=== PATIENT | male | born 1975 | race Caucasian/White ===

== ENCOUNTER 2022-04-28 12:42 | Inpatient (IN) ==
[2022-04-28] MEDS ORDERED: SODIUM CHLORIDE 0.9% 500 ML IV STA (13:06)
[2022-04-28] MEDS ORDERED: ONDANSETRON INJ 2 MG/ML 2 ML VIAL IV STA ×2 (13:13→17:13)
[2022-04-28] MEDS ORDERED: MoRPHine SULFATE 4 MG/ML 1 ML CARP\\VIAL IV STA ×2 (13:13→17:13)
--- NOTE | 2022-04-28 13:15 | Emergency Department Note ---
Impression & Plan Choledocholithiasis ADMIT ED Provider Note HPI: The patient is a 47-year-old male with history of chronic pancreatitis, diverticulitis, presents the emergency department with chief complaint of worsening epigastric pain over the past several days that he states feels s imilar to pancreatitis he has had in the past. Patient states he has had some nausea but denies any vomiting. On arrival here to the ED the patient is hemodynamically stable, he is in no acute distress on my initial evaluation. ROS: -GI: Epigastric abdominal pain and mid abdominal pain, nausea *10 point review systems was conducted and is otherwise negative unless stated above *Outpatient medications and allergy history reviewed PE: General: Alert, NAD HEENT: Normocephalic, atraumatic Eyes: Extraocular eye movement is intact, no scleral erythema Pulmonary: Clear to auscultation bilaterally, no wheezing Cardio: Regular rate and rhythm GI: Abdomen is soft, there is tenderness to palpation over the upper abdomen diffusely, no guarding or rigidity : No suprapubic tenderness MSK: No evidence of trauma or malformation of the extremities, no edema Skin: No evidence of rash Neuro: Alert, no focal deficits Psychiatric: Cooperative category analyst: - An order was placed for continuous cardiac monitoring - Patient was noted to be in sinus rhythm with a rate of 67 Medical Decision Making: Patient presented to the emergency department with a chief complaint of upper abdominal pain and mid abdominal pain that is been bothering him for the past several days. Patient states he feels similar to acute pancreatitis he has had the past. CT imaging of the abdomen pelvis was obtained after patient was given IV fluids as well as morphine and Zofran, CT imaging shows concern for acute cholecystitis with intra hepatic and extrahepatic biliary ductal dilation concerning for choledocholithiasis. Ultrasound imaging shows similar concern. Patient does have elevated bilirubin of 4.1, LFTs are also elevated. I did discuss the case with on-call gastroenterology for [facility], Dr. Salazar, who recommends at this time admission to the medicine service and GI will evaluate the patient as consult for ERCP. My reassessment the patient is resting comfortably in bed, he is updated on the above plan and he is in agreement. He was given a dose of IV ceftriaxone and made NPO. Case was discussed with the on-call admitting medicine midlevel provider for [facility] and the patient was admitted in stable condition for further care. Diagnosis: 1. Acute cholecystitis secondary to choledocholithiasis 2. Acute abdominal pain 3. Transaminitis 4. 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 History of surgery on lower extremity right tibia shaft reconstructive surgery Family History Mother Diabetes Social History Smoking Status: Never smoker Preferred Language: Croatian marital status: Single current occupational status: employed 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 Feels Safe at Home: Yes Allergies Allergies Allergy/AdvReac Type Severity Reaction Status Date / Time vancomycin AdvReac Unknown Unknown Verified 04/28/22 15:54 Home Meds Home Medications Medication Instructions Recorded Confirmed bupropion HCl 100 mg tablet 100 mg PO TID 02/19/22 04/28/22 cholecalciferol (vitamin D3) 50 50 mcg PO DAILY 02/19/22 04/28/22 mcg (2,000 unit) capsule duloxetine 20 mg capsule,delayed 20 mg PO DAILY 02/19/22 04/28/22 release (Cymbalta) mirtazapine 15 mg tablet 7.5 mg PO HS 02/19/22 04/28/22 omeprazole 20 mg capsule,delayed 20 mg PO BID 02/19/22 04/28/22 release [id number] 2 - 3 cap PO UD 04/17/22 04/28/22 24,000-76,000-120,000 unit capsule,delayed rel (Creon) Results & Data (ED) Vital Signs Vital Signs - 24 hr 04/28/22 12:49 04/28/22 15:45 Temperature 37 C Temperature Source Temporal Artery Scan Pulse Rate 83 Pulse Rate [Apical] 65 Respiratory Rate 18 16 Respiratory Effort / Characteristics Non-Labored Spontaneous Non-Labored Spontaneous Respiratory Depth Normal Normal Respiratory Pattern Regular Blood Pressure 123/84 Blood Pressure [Right Arm] 137/91 Blood Pressure Mean 97 Blood Pressure Mean [Right Arm] 106 Blood Pressure Position Sitting Blood Pressure Position [Right Arm] Lying Pulse Oximetry 97 98 Oxygen Delivery Method Room Air Room Air Sepsis Recent Fever Within 48 Hours No Sepsis New/Unexplained Change in Mental Status No Sepsis Action Taken by Nursing No Action Required Laboratory Data Result diagrams: 04/28/22 13:06 04/28/22 13:06 Lab Results 04/28/22 04/28/22 04/28/22 Range/Units 13:06 13:06 13:06 WBC 5.29 (4.8-10.8) K/ul RBC 4.82 (4.63-6.08) M/uL Hgb 14.3 (14.0-18.0) g/dl Hct 44.1 (40.1-51.0) % MCV 91.5 (80.0-100.0) fL MCH 29.7 (25.0-34.0) pg MCHC 32.4 (32.0-36.0) g/dL RDW Std Deviation 39.3 (36.4-46.3) fL RDW Coeff of Mayra 11.8 (11.5-14.5) % Plt Count 273 (130-400) K/uL MPV 9.8 (9.4-12.4) fL Immature Gran % (Auto) 0.2 % Neut % (Auto) 62.1 % Lymph % (Auto) 24.8 % Ross % (Auto) 11.7 % Eos % (Auto) 0.6 % Baso % (Auto) 0.6 % Neut # (Auto) 3.29 (1.4-6.5) K/uL Lymph # (Auto) 1.31 (1.2-3.4) K/uL Ross # (Auto) 0.62 (0.24-0.82) K/uL Eos # (Auto) 0.03 (0-0.50) K/uL Baso # (Auto) 0.03 (0-0.2) K/uL Immature Gran # (Auto) 0.01 (0.00-0.02) K/uL Sodium 140 (136-145) mmol/L Potassium 3.9 (3.5-5.1) mmol/L Chloride 104 (98-107) mmol/L Carbon Dioxide 30 (21-32) mmol/L Anion Gap 6 (3-11) BUN 11 (6-23) mg/dl Creatinine 0.91 (0.6-1.4) mg/dl Est Cr Clr Drug Dosing 104.1 ml/min Est GFR ( Amer) 117.5 ml/min Est GFR (Non-Af Amer) 101.4 ml/min BUN/Creatinine Ratio 12.1 (10-20) Glucose 107 H (70-99(Fasting)) mg/dl Calcium 9.5 (8.5-10.1) mg/dl Total Bilirubin 4.1 H (0.2-1.0) mg/dl AST 425 H (13-39) U/L ALT 604 H (7-52) U/L Alkaline Phosphatase 197 H (34-104) U/L Total Protein 7.7 (6.0-8.3) gm/dl Albumin 4.6 (3.4-5.0) gm/dl Globulin 3.1 (2.5-4.0) gm/dl Albumin/Globulin Ratio 1.5 (0.9-2) Lipase 53 (11-82) U/L Urine Color Dark Yellow Urine Appearance Clear (Clear) Urine pH 7.5 (4.5-7.5) Ur Specific Bowdle 1.013 (1.000-1.030) Urine Protein Negative (Negative) Urine Glucose (UA) Negative (Negative) Urine Ketones Negative (Negative) Urine Blood Negative (Negative) Urine Nitrite Negative (Negative) Urine Bilirubin 1+ H (Negative) Urine Urobilinogen Negative (Negative) Ur Leukocyte Esterase Negative (Negative) Administered Medications Discontinued Medications Sodium Chloride (Nss) 500 mls @ 999 mls/hr IV .Q31M STA Stop: 04/28/22 13:36 Last Infusion: 04/28/22 14:07 Dose: 0 mls/hr Documented By: Admin: 04/28/22 13:21 Dose: 999 mls/hr Documented By: TANIA Ioversol (Optiray 300 500ml) 94 ml IV ONCE ONE Stop: 04/28/22 14:01 Last Admin: 04/28/22 14:00 Dose: 94 ml Documented By: FRANCOISE Morphine Sulfate (Morphine Sulfate 4 Mg/Ml 1 Ml Carp\Vial) 4 mg IV NOW STA Stop: 04/28/22 13:14 Last Admin: 08/30/22 13:20 Dose: 4 mg Documented By: TANIA Ondansetron HCl (Ondansetron Inj 2 Mg/Ml 2 Ml Vial) 4 mg IV NOW STA Stop: 04/28/22 13:14 Last Admin: 04/28/22 13:20 Dose: 4 mg Documented By: TANIA Imaging Data Radiologist's Impression: Abdomen/Pelvis CT 04/28/22 13:11 CT SCAN OF THE ABDOMEN AND PELVIS WITH IV CONTRAST CLINICAL HISTORY: Mid abdominal pain. COMPARISON STUDY: Abdominal CT dated 03/05/2022. TECHNIQUE: Following the IV administration of 94 cc of Optiray 300, CT scan of the abdomen and pelvis is performed from the lung bases to the proximal femora. Images are reviewed in the axial, sagittal, and coronal planes. IV contrast was administered without complication. A dose lowering technique was utilized adhering to the principles of ALARA. CT DOSE: 347.72 mGy.cm FINDINGS: Lung bases: The heart is normal in size and without pericardial effusion. The lung bases are clear. Liver: The contrast-enhanced liver is normal in size, contour, and attenuation. There is mild intrahepatic biliary ductal dilatation. The hepatic veins and portal veins are patent. Gallbladder: The gallbladder is distended, and the wall appears thickened. There is minimal surrounding infiltration. The common bile duct is dilated measuring up to 11 mm in diameter. Spleen: Normal in size and attenuation. Pancreas: The pancreas is normal as visualized. The duct is normal in caliber. Adrenal glands: Unremarkable. Kidneys: The contrast enhanced kidneys are normal in size and without hydronephrosis. The kidneys enhance symmetrically. Abdominal vasculature: The abdominal aorta is normal in course and caliber. Bowel: There is mild to moderate colonic fecal retention. No bowel obstruction is seen. The appendix is normal as visualized. Peritoneum: There is a small volume of free fluid in the pelvis. No intraperitoneal free air is identified. There is a fat-containing umbilical hernia. Lymphadenopathy: None. Pelvic viscera: The bladder is distended but otherwise normal in appearance. The prostate and seminal vesicles are normal as visualized. Skeletal structures: No lytic or blastic lesions are seen. IMPRESSION: 1. There is CT evidence of acute cholecystitis. Correlate with clinical and laboratory findings. 2. Intra and extrahepatic biliary ductal dilatation suggest choledocholithiasis as causative. 3. The pancreas is normal as visualized. 4. Free fluid in the pelvis is likely reactive. 5. Additional findings as above. ACT 112: Negative or not required by law. Electronically signed by: Francesco Pérez M.D. 04/28/2022 2:22 PM Gallbladder Ultrasound 04/28/22 14:09 ULTRASOUND RIGHT UPPER QUADRANT ABDOMEN CLINICAL HISTORY: Right upper quadrant abdominal pain. Elevated hepatic transaminases. COMPARISON STUDY: Abdominal CT dated 04/28/2022. TECHNIQUE: Real-time, grayscale, and color flow sonography of the right upper quadrant of the abdomen was performed. Images are reviewed in the transverse and longitudinal planes. FINDINGS: Liver: The liver is normal in size and echotexture. There is mild intrahepatic biliary ductal dilatation. The main portal vein is patent. Gallbladder: The gallbladder is distended, containing stones and sludge. The gallbladder wall is top normal in thickness measuring up to 3 mm. There is trace pericholecystic fluid. A sonographic Sellers's sign could not be assessed as the patient received analgesia. The common bile duct is dilated, measuring up to 1.1 cm in diameter. Pancreas: Visualized portions of the pancreatic head and body are normal in appearance. Right kidney: Survey images of the right kidney demonstrate normal size and echotexture. There is no hydronephrosis. Ascites: None. IMPRESSION: 1. Cholelithiasis and biliary sludge with sonographic evidence of acute cholecystitis. Surgical assessment is advised. 2. There is intra and extrahepatic biliary ductal dilatation. ACT 112: Negative or not required by law. Electronically signed by: Francesco Pérez M.D. 04/28/2022 3:28 PM Discharge Plan Visit Data Chief Complaint: Abdominal Pain Stated Complaint: ABDOMINAL PAIN ED Provider: Kendell Fontenot Discharge Problem: Choledocholithiasis Patient Disposition: Admitted As Inpatient Forms Stand Alone Forms: [facility] Prescriptions Prescriptions: No Action mirtazapine 15 mg tablet 7.5 mg PO HS Rx Instructions: 1/2 tablet dose bupropion HCl 100 mg tablet 100 mg PO TID omeprazole 20 mg capsule,delayed release(DR/EC) 20 mg PO BID cholecalciferol (vitamin D3) 50 mcg (2,000 unit) capsule 50 mcg PO DAILY duloxetine [Cymbalta] 20 mg capsule,delayed release(DR/EC) 20 mg PO DAILY Creon 24,000-76,000 -120,000 unit capsule,delayed release(DR/EC) 2 - 3 cap PO UD MDD 8-10 caps daily Rx Instructions: take 2-3 capsules with meals and 1-2 capsules with snack Referrals Referrals: Cory Andersen [Primary Care Provider] -
[2022-04-28 13:17] LABS: Basophils # (auto) 0.03 K/uL (0-0.2); Basophils % (auto) 0.6 %; Eosinophils # (auto) 0.03 K/uL (0-0.50); Eosinophils % (auto) 0.6 %; Hematocrit (blood only) 44.1 % (40.1-51.0); Hemoglobin 14.3 g/dl (14.0-18.0); Immature Granulocytes # (auto) 0.01 K/uL (0.00-0.02); Immature Granulocytes % (auto) 0.2 %; Lymphocytes # (auto) 1.31 K/uL (1.2-3.4); Lymphocytes % (auto) 24.8 %; Mean Corpuscular Hemoglobin 29.7 pg (25.0-34.0); Mean Corpuscular Hgb Conc 32.4 g/dL (32.0-36.0); Mean Corpuscular Volume 91.5 fL (80.0-100.0); Mean Platelet Volume 9.8 fL (9.4-12.4); Monocytes # (auto) 0.62 K/uL (0.24-0.82); Monocytes % (auto) 11.7 %; Neutrophils # (auto) 3.29 K/uL (1.4-6.5); Neutrophils % (auto) 62.1 %; Platelet Count 273 K/uL (130-400); RDW Coefficient of Variation 11.8 % (11.5-14.5); RDW Standard Deviation 39.3 fL (36.4-46.3); Red Blood Count 4.82 M/uL (4.63-6.08); White Blood Count 5.29 K/ul (4.8-10.8)
[2022-04-28 13:19] LABS: Appearance Urine Clear (Clear); Blood Urine Negative (Negative); Color Urine Dark Yellow; Glucose Urine UA Negative (Negative); Ketones Urine Negative (Negative); Leukocyte Esterase Urine Negative (Negative); Nitrite Urine Negative (Negative); Protein Urine Negative (Negative); Specific Gravity Urine 1.013 (1.000-1.030); Urobilinogen Urine Negative (Negative); pH Urine 7.5 (4.5-7.5)
[2022-04-28 13:22] LABS: Bilirubin Urine 1+ (Negative)
[2022-04-28 13:41] LABS: BUN Creatinine Ratio 12.1 (10-20); Calcium 9.5 mg/dl (8.5-10.1); Creatinine Clr Calc Pharmacy 104.1 ml/min; Est GFR (African American) 117.5 ml/min; Est GFR (Non-African American) 101.4 ml/min; Potassium 3.9 mmol/L (3.5-5.1)
[2022-04-28 13:42] LABS: Albumin Globulin Ratio 1.5 (0.9-2); Albumin Level 4.6 gm/dl (3.4-5.0); Bilirubin,Total 4.1 mg/dl (0.2-1.0); Globulin 3.1 gm/dl (2.5-4.0); Total Protein 7.7 gm/dl (6.0-8.3)
[2022-04-28] MEDS ORDERED: OPTIRAY 300 500mL IV ONE (14:00)
--- NOTE | 2022-04-28 14:24 | CT Scan Report ---
CT SCAN OF THE ABDOMEN AND PELVIS WITH IV CONTRAST CLINICAL HISTORY: Mid abdominal pain. COMPARISON STUDY: Abdominal CT dated 03/05/2022. TECHNIQUE: Following the IV administration of 94 cc of Optiray 300, CT scan of the abdomen and pelvi s is performed from the lung bases to the proximal femora. Images are reviewed in the axial, sagittal , and coronal planes. IV contrast was administered without complication. A dose lowering technique wa s utilized adhering to the principles of ALARA. CT DOSE: 347.72 mGy.cm FINDINGS: Lung bases: The heart is normal in size and without pericardial effusion. The lung bases are clear. Liver: The contrast-enhanced liver is normal in size, contour, and attenuation. There is mild intrahe patic biliary ductal dilatation. The hepatic veins and portal veins are patent. Gallbladder: The gallbladder is distended, and the wall appears thickened. There is minimal surroundi ng infiltration. The common bile duct is dilated measuring up to 11 mm in diameter. Spleen: Normal in size and attenuation. Pancreas: The pancreas is normal as visualized. The duct is normal in caliber. Adrenal glands: Unremarkable. Kidneys: The contrast enhanced kidneys are normal in size and without hydronephrosis. The kidneys enh ance symmetrically. Abdominal vasculature: The abdominal aorta is normal in course and caliber. Bowel: There is mild to moderate colonic fecal retention. No bowel obstruction is seen. The appendix is normal as visualized. Peritoneum: There is a small volume of free fluid in the pelvis. No intraperitoneal free air is ident ified. There is a fat-containing umbilical hernia. Lymphadenopathy: None. Pelvic viscera: The bladder is distended but otherwise normal in appearance. The prostate and seminal vesicles are normal as visualized. Skeletal structures: No lytic or blastic lesions are seen. IMPRESSION: 1. There is CT evidence of acute cholecystitis. Correlate with clinical and laboratory findings. 2. Intra and extrahepatic biliary ductal dilatation suggest choledocholithiasis as causative. 3. The pancreas is normal as visualized. 4. Free fluid in the pelvis is likely reactive. 5. Additional findings as above. ACT 112: Negative or not required by law. Electronically signed by: Francesco Pérez M.D. 04/28/2022 2:22 PM
--- NOTE | 2022-04-28 15:29 | Ultrasound Report ---
ULTRASOUND RIGHT UPPER QUADRANT ABDOMEN CLINICAL HISTORY: Right upper quadrant abdominal pain. Elevated hepatic transaminases. COMPARISON STUDY: Abdominal CT dated 04/28/2022. TECHNIQUE: Real-time, grayscale, and color flow sonography of the right upper quadrant of the abdomen was performed. Images are reviewed in the transverse and longitudinal planes. FINDINGS: Liver: The liver is normal in size and echotexture. There is mild intrahepatic biliary ductal dilatat ion. The main portal vein is patent. Gallbladder: The gallbladder is distended, containing stones and sludge. The gallbladder wall is top normal in thickness measuring up to 3 mm. There is trace pericholecystic fluid. A sonographic Sellers' s sign could not be assessed as the patient received analgesia. The common bile duct is dilated, daiana uring up to 1.1 cm in diameter. Pancreas: Visualized portions of the pancreatic head and body are normal in appearance. Right kidney: Survey images of the right kidney demonstrate normal size and echotexture. There is no hydronephrosis. Ascites: None. IMPRESSION: 1. Cholelithiasis and biliary sludge with sonographic evidence of acute cholecystitis. Surgical asses sment is advised. 2. There is intra and extrahepatic biliary ductal dilatation. ACT 112: Negative or not required by law. Electronically signed by: Francesco Pérez M.D. 04/28/2022 3:28 PM
[2022-04-28] MEDS ORDERED: cefTRIAXone SODIUM 2,000 MG/70 ML BAG IV STA (15:47)
--- NOTE | 2022-04-28 15:59 | Gastrointestinal Consultation ---
Date of Consultation April 28, 2022 Assessment & Plan (1) Abdominal pain: (2) Elevated LFTs: (3) Dilated bile duct: (4) Cholecystitis with cholelithiasis: And choledocholithiasis w/o evidence of cholangitis. Plan NPO Will arranged MRI/MRCP (hx of chronic pancreatitis, r/o bile duct strictures) Will plan for ERCP tomorrow. Supervising Physician Co-Signing Physician Notes Attg add: I interviewed and examined pt, reviewed chart and labs. Pt with prior dx alcoholic pancreatitis at [facility] (Dr Lamas) 3-4 years prior, maintained on Creon with episodes of abd pain approx once a month lasting 6 hours and managed at home. He now presents with abd pain since yesterday in epigastrium rad to back, assoc with nausea and decr appetite. no cholangitis symptoms. LFTs newly elevated, lipase WNL, WBC WNL. CT shows zaynab dil, stones, mild GB wall thick and perichole fluid. On exam, he is comfortable and non tender. MRCP to look for CBD stricture ERCP tomorrow Surg consult for julee Abx for possible cholecystitis History of Present Illness Reason for Consultation: Choledocholithiasis Requesting Physician: Dr. Hinds (ED) Attending Physician: Dr. Hinds History of Present Illness Mr. Konstantin Sibley is a 47 yr old male pt of Dr. Cory Andersen w a hx of ETOH pancreatitis, abstaining for years who presented to the ED today for upper abdomen pain in the epigastric/RUQ of the abdomen radiating to the mid back. He reports intermittent episodes of upper abdomen pain for 2 months. He was also dx'ed with diverticulitis a few weeks ago, tx with Augmentin. Severe upper abd pain radiating to the back began yesterday morning after eating waffles. He is S/P ERCP about 4 yrs ago when dx'ed with ETOH pancreatitis. Pt doesn't believe that he underwent sphincterotomy. On arrival, LFTs were elevated: T Bili 4.1, AST 425, ALT 604, Alk Phos 604, lipase 53. CT and US with gallstones, a thickened gallbladder wall, dilated bile duct to 11mm. Allergies Allergy/AdvReac Type Severity Reaction Status Date / Time vancomycin AdvReac Unknown Unknown Verified 04/28/22 15:54 Home Medications Medication Instructions Recorded Confirmed Type bupropion HCl 100 mg tablet 100 mg PO TID 02/19/22 04/28/22 History cholecalciferol (vitamin D3) 50 50 mcg PO DAILY 02/19/22 04/28/22 History mcg (2,000 unit) capsule duloxetine 20 mg capsule,delayed 20 mg PO DAILY 02/19/22 04/28/22 History release (Cymbalta) mirtazapine 15 mg tablet 7.5 mg PO HS 02/19/22 04/28/22 History omeprazole 20 mg capsule,delayed 20 mg PO BID 02/19/22 04/28/22 History release [id number]-[id number]-rxwwfkd 2 - 3 cap PO UD 04/17/22 04/28/22 History 24,000-76,000-120,000 unit capsule,delayed rel (Creon) Patient History Medical History (Updated 04/28/22 @ 16:35 by Kendell Fontenot DO) Anxiety state Chronic pancreatitis Elevated PSA GERD (gastroesophageal reflux disease) HTN (hypertension) Vitamin D deficiency Surgical History (Updated 04/28/22 @ 16:18 by Liliam Henderson PA-C) 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 History of surgery on lower extremity right tibia shaft reconstructive surgery Family History Mother Diabetes Social History Smoking Status: Never smoker Preferred Language: Hungarian marital status: Single current occupational status: employed 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 Feels Safe at Home: Yes Review of Systems Review of Systems: ROS: Gen: Denies weakness, fevers, weight loss Eyes: No eye redness, or pain, no recent vision changes Resp: No SOB, no cough Cardio: No palpitations/irregular beats, no chest pain GI: As per HPI, otherwise (-) : Denies pain on urination Skin: + jaundice, +itching or new rashes Physical Exam Constitutional: WD/WN, vitals as above Eyes: PERRL, conjunctivae normal, anicteric sclerae ENMT: external ear and nose normal, oropharynx normal Neck: trachea midline, no thyromegaly Respiratory: normal respiratory effort, lungs clear to auscultation Cardiovascular: RRR, no murmur, no edema Gastrointestinal (Abdomen): Inspection/Auscultation: abdomen normal to inspection and + hypoactive bowel sounds; abdomen not distended Percussion/ Palpation: + abdomen tender (epigastric and RUQ moderate tenderness) and abdomen soft Skin: normal turgor and + jaundice Neurologic: PERRL, EOMI, accommodation nl, no face palsy, no dysarthria Psychiatric: A+Ox3, euthymic affect Lymphatic: no cervical or axillary lymphadenopathy Results & Data ([facility]) Vital Signs (Past 12 Hours) Vital Signs Temp Pulse Pulse Resp BP BP Pulse Ox 04/28/22 15:45 65 16 137/91 98 04/28/22 12:49 37 C 83 18 123/84 97 O2 Del Method 04/28/22 15:45 Room Air 04/28/22 12:49 Room Air Laboratory Results WBC , Hb 14.3, Hct 44.1, Plts 273, Na 140, K 3.9, Cl 104, CO2 30, BUN 11, Cr 0.71, glucose 10 T Bili 4.1, AST 425, ALT 604, Alk Phos 197, Lipase 53 Diagnostic Findings CTAP 04/28/22: 1. There is CT evidence of acute cholecystitis. Correlate with clinical and laboratory findings. 2. Intra and extrahepatic biliary ductal dilatation suggest choledocholithiasis as causative. 3. The pancreas is normal as visualized. 4. Free fluid in the pelvis is likely reactive. US 04/28/22: 1. Cholelithiasis and biliary sludge with sonographic evidence of acute cholecystitis. Surgical assessment is advised. 2. There is intra and extrahepatic biliary ductal dilatation
--- NOTE | 2022-04-28 16:07 | History & Physical Report ---
Date of Service April 28, 2022 Assessment & Plan (1) Choledocholithiasis: Plan: - CT A/P shows intra and extrahepatic duct dilation, also noted on GB U/S, CBD dilated to 1.1 cm. - Also with evidence of cholecystitis, patient afebrile and without leukocytosis. - [facility] consulted, plan for MRCP this evening and probable ERCP tomorrow. - General surgery consulted regarding cholecystitis. - Placed empirically on antibiotic coverage, Rocephin daily and Flagyl every 8 hours. - NPO. - LR @ 125 cc/hour - IV Tylenol for pain/fever IV morphine for moderate to severe pain, IV Zofran for nausea/vomiting. (2) Cholecystitis: Plan: - Surgery consulted as above, on Rocephin and Flagyl. (3) Chronic pancreatitis: Plan: - Continue Creon with meals when no longer n.p.o. - Lipase 53, CT A/P without evidence of pancreatitis. - Reportedly has a history of chronic pancreatitis, with first incident occurring 4-5 years ago, and chronic, intermittent abdominal pain. States he was binge drinking every weekend back then, however and has never been a daily drinker. Last alcoholic drink 4 to 5 years ago with first incident of pancreat itis. - Follows with [facility] for his chronic pancreatitis management. (4) GERD (gastroesophageal reflux disease): Plan: - Continue daily PPI daily when no longer n.p.o., convert omeprazole to hospital formulary Protonix. (5) Anxiety state: Plan: - Continue Wellbutrin 100 mg 3 times daily with mirtazapine 7.5 mg at night when no longer NPO. - No longer takes Cymbalta. (6) Vitamin D deficiency: Plan: - Continue vitamin D3 when no longer NPO. Plan - Admit to med/surg. - SCDs for VTE px. - Full Code. History of Present Illness Chief Complaint: Abdominal and back pain times for several days Primary Care Provider: Cory Ruizerwin Konstantin Hutchins is a 47-year-old male with a past medical history of chronic pancreatitis secondary to alcohol use, hypertension, depression and anxiety, GERD, vitamin D deficiency who presents today with abdominal pain. He has had intermittent, chronic abdominal pain for several months due to his underlying chronic pancreatitis, however yesterday morning it was acutely worse. It is in his epigastric region and radiates to his back and has been persistent. His lack of appetite, stating that any food or drink he tries to keep down makes his pain worse. He has been nauseous with it, however has no vomiting, no diarrhea, no constipation. He has not had fever or chills at home. He has been told in the past that there has been sludge in his gallbladder. Upon presentation in the ED, he is hemodynamically stable, vital signs within normal limits. CBC unremarkable, CMP with T bili 4.1, AST 425, ALT 64, alk phos 197, otherwise without electrolyte abnormalities, lipase 53, calcium 9.5. His UA with 1+ bilirubin, otherwise unremarkable. CT A/P gallbladder distention with wall thickening, concerning for cholecystitis.there is also intra and extrahepatic biliary ductal dilation suggestive of choledocholithiasis, with the CBD measuring up to 11 mm. The pancreas visualized and normal, there are some free fluid in the pelvis that is likely reactive. There is mild to moderate fecal retention, without obstruction. GBU/S also shows cholelithiasis and biliary sludge with again, intra and extrahepatic biliary ductal dilation. GB wall measuring 3 mm in thickness. Allergies Allergy/AdvReac Type Severity Reaction Status Date / Time vancomycin AdvReac Unknown Unknown Verified 04/28/22 15:54 Home Medications Medication Instructions Recorded Confirmed Type bupropion HCl 100 mg tablet 100 mg PO TID 02/19/22 04/28/22 History cholecalciferol (vitamin D3) 50 50 mcg PO DAILY 02/19/22 04/28/22 History mcg (2,000 unit) capsule duloxetine 20 mg capsule,delayed 20 mg PO DAILY 02/19/22 04/28/22 History release (Cymbalta) mirtazapine 15 mg tablet 7.5 mg PO HS 02/19/22 04/28/22 History omeprazole 20 mg capsule,delayed 20 mg PO BID 02/19/22 04/28/22 History release [id number] 2 - 3 cap PO UD 04/17/22 04/28/22 History 24,000-76,000-120,000 unit capsule,delayed rel (Creon) Past Med/Surg History Medical History (Updated 04/28/22 @ 16:35 by Kendell Fontenot DO) Anxiety state Chronic pancreatitis Elevated PSA GERD (gastroesophageal reflux disease) HTN (hypertension) Vitamin D deficiency Surgical History (Updated 04/28/22 @ 16:18 by Liliam Henderson PA-C) 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 History of surgery on lower extremity right tibia shaft reconstructive surgery Family History (Updated 04/29/22 @ 09:03 by Sumanth Law) Mother Diabetes Other Gall bladder disease Social History Smoking Status: Never smoker Hx Alcohol Use: No Hx Substance Use: No Preferred Language: Hungarian Communication Ability: Effective 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 Beliefs That Will Affect Care: None marital status: Single Current Living Situation: Significant Other current occupational status: employed 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 Other Information That Helps Us Care for You: No Feels Safe at Home: Yes Safety Concerns: Feels Safe At This Time Assistive Devices: Glasses Review of Systems Review of Systems: Constitutional: anorexia x 1 days; No fever/chills, weakness, fatigue, myalgias, night sweats Eyes: No diplopia, no worsening or blurred vision ENT: normal hearing, no trouble swallowing Respiratory: No cough, sputum, dyspnea at rest or on exertion Cardiovascular: No chest pain, tightness or palpitations Abdomen: Epigastric abdominal pain with radiation to the back, with associated nausea and lack of appetite; no vomiting, diarrhea or constipation : Denies dysuria, hematuria, increased urgency/frequency, urinary retention Musculoskeletal: No joint pain, calf pain, swelling Neurologic: No weakness, numbness/tingling, or balance problems Psychiatric: No anxiety or depression Skin: No rash or itch Physical Exam Physical Exam: \ General: awake, alert, no apparent distress Head: Normocephalic, atraumatic ENT: PERRL, EOMI, no pharyngeal exudate, mucous membranes moist Chest: Clear to auscultation, on room air, no adventitious breath sounds Cardiac: Regular rate and rhythm, no murmur, no JVD, normal peripheral pulses, good capillary refill Abdominal: TTP in epigastric region and RUQ; no rebound, guarding or tenderness; NABS x 4 quadrants, abdomen is soft Extremities: Normal inspection, no peripheral edema or erythema, calfs nontender to palpation Psych: Normal mood and affect Neuro: AAO x 3, strength intact bilaterally and rated 5/5, no motor deficits, speech is clear, no peripheral sensory deficits Skin: no rash or erythema Results & Data Results & Data ([facility]) Vital Signs (Past 12 Hours) Vital Signs Temp Pulse Pulse Resp BP BP Pulse Ox 04/28/22 15:45 65 16 137/91 98 04/28/22 12:49 37 C 83 18 123/84 97 O2 Del Method 04/28/22 15:45 Room Air 04/28/22 12:49 Room Air Laboratory Results Abnormal lab results 04/28/22 04/28/22 Range/Units 13:06 13:06 Glucose 107 H (70-99(Fasting)) mg/dl Total Bilirubin 4.1 H (0.2-1.0) mg/dl AST 425 H (13-39) U/L ALT 604 H (7-52) U/L Alkaline Phosphatase 197 H (34-104) U/L Urine Bilirubin 1+ H (Negative) Diagnostic Findings Abdomen/Pelvis CT 04/28/22 13:11 CT SCAN OF THE ABDOMEN AND PELVIS WITH IV CONTRAST CLINICAL HISTORY: Mid abdominal pain. COMPARISON STUDY: Abdominal CT dated 03/05/2022. TECHNIQUE: Following the IV administration of 94 cc of Optiray 300, CT scan of the abdomen and pelvis is performed from the lung bases to the proximal femora. Images are reviewed in the axial, sagittal, and coronal planes. IV contrast was administered without complication. A dose lowering technique was utilized adhering to the principles of ALARA. CT DOSE: 347.72 mGy.cm FINDINGS: Lung bases: The heart is normal in size and without pericardial effusion. The l jennifer bases are clear. Liver: The contrast-enhanced liver is normal in size, contour, and attenuation. There is mild intrahepatic biliary ductal dilatation. The hepatic veins and portal veins are patent. Gallbladder: The gallbladder is distended, and the wall appears thickened. There is minimal surrounding infiltration. The common bile duct is dilated measuring up to 11 mm in diameter. Spleen: Normal in size and attenuation. Pancreas: The pancreas is normal as visualized. The duct is normal in caliber. Adrenal glands: Unremarkable. Kidneys: The contrast enhanced kidneys are normal in size and without hydronephrosis. The kidneys enhance symmetrically. Abdominal vasculature: The abdominal aorta is normal in course and caliber. Bowel: There is mild to moderate colonic fecal retention. No bowel obstruction is seen. The appendix is normal as visualized. Peritoneum: There is a small volume of free fluid in the pelvis. No intraperitoneal free air is identified. There is a fat-containing umbilical hernia. Lymphadenopathy: None. Pelvic viscera: The bladder is distended but otherwise normal in appearance. The prostate and seminal vesicles are normal as visualized. Skeletal structures: No lytic or blastic lesions are seen. IMPRESSION: 1. There is CT evidence of acute cholecystitis. Correlate with clinical and laboratory findings. 2. Intra and extrahepatic biliary ductal dilatation suggest choledocholithiasis as causative. 3. The pancreas is normal as visualized. 4. Free fluid in the pelvis is likely reactive. 5. Additional findings as above. ACT 112: Negative or not required by law. Electronically signed by: Francesco Pérez M.D. 04/28/2022 2:22 PM Gallbladder Ultrasound 04/28/22 14:09 ULTRASOUND RIGHT UPPER QUADRANT ABDOMEN CLINICAL HISTORY: Right upper quadrant abdominal pain. Elevated hepatic transaminases. COMPARISON STUDY: Abdominal CT dated 04/28/2022. TECHNIQUE: Real-time, grayscale, and color flow sonography of the right upper quadrant of the abdomen was performed. Images are reviewed in the transverse and longitudinal planes. FINDINGS: Liver: The liver is normal in size and echotexture. There is mild intrahepatic biliary ductal dilatation. The main portal vein is patent. Gallbladder: The gallbladder is distended, containing stones and sludge. The gallbladder wall is top normal in thickness measuring up to 3 mm. There is trace pericholecystic fluid. A sonographic Sellers's sign could not be assessed as the patient received analgesia. The common bile duct is dilated, measuring up to 1.1 cm in diameter. Pancreas: Visualized portions of the pancreatic head and body are normal in appearance. Right kidney: Survey images of the right kidney demonstrate normal size and echotexture. There is no hydronephrosis. Ascites: None. IMPRESSION: 1. Cholelithiasis and biliary sludge with sonographic evidence of acute cholecystitis. Surgical assessment is advised. 2. There is intra and extrahepatic biliary ductal dilatation. ACT 112: Negative or not required by law. Electronically signed by: Francesco Pérez M.D. 04/28/2022 3:28 PM Code Status & VTE Plan Code Status Full Code. Supervising Physician Co-Signing Physician Notes Attending Attestation & Admit Note: Pt seen/examined, chart reviewed, care plan d/w DHARA Henderson. I agree w/ the bhakta components of her documentation. 47yo male - h/o alcohol abuse but none in 5+ years and chronic pancreatitis followed by [facility] - presents with acute/chronic abd pain. Acute pain 24+ hours. RUQ/epigastric region. Retrospectively the current pain is similar to past episodes of abd pain (previously attributed to chronic pancreatitis by GI). Presents today with radiographic evidence of acute cholecystitis & choledocholithiasis. LFTs increased in an obstructive pattern. No fever. PMH/PSH/allergies/meds/sochx/famhx - reviewed VSS, afebrile gen - NAD eyes - icterus mouth - MMM heart - RRR, s1 s2 lungs - CTA b/l abd - mildly tender RUQ, BS+, ND, no peritoneal signs ext - no edema labs reviewed imaging including MRCP reviewed A/P: 1. probable acute cholecystitis 2. choledocholithiasis 3. abnormal LFTs 2nd to #1, #2 4. r/o cholangitis 5. reported h/o chronic pancreatitis but no calcifications on imaging of the pancreas; lipase wnl today IV rocephin/flagyl IV fluids pain meds GI consult for consideration of ERCP gen surg consult for lap julee down the line serial labs blood cx's due to #2 and #4 Sumanth Law MD PG Care Time/CCT Total # of Minutes Spent Total Time Spent with Patient: Total time spent is greater than 50% in coordination of care (as documented) at patient's floor/unit and/or counseling patient: Coding Level of Care Code 41283 Initial Inpt Care Lvl 3 Diagnoses Choledocholithiasis K80.50 Cholecystitis K81.9 Chronic pancreatitis K86.1 GERD (gastroesophageal reflux disease) K21.9 Anxiety state F41.1 Vitamin D deficiency E55.9
[2022-04-28] MEDS ORDERED: metroNIDAZOLE 500 MG/100 ML BAG IV STA (16:58)
[2022-04-28 18:23] LABS: Influenza A virus by PCR Negative (Neg); Influenza B virus by PCR Negative (Neg); RSV by PCR Negative (Neg); SARS CoV2 RNA(COVID-19) InHosp NEGATIVE (Negative)
--- NOTE | 2022-04-28 20:47 | Magnetic Resonance Report ---
MRCP CLINICAL HISTORY: Acute cholecystitis. COMPARISON STUDY: Abdominal CT and abdominal ultrasound dated 04/28/2022. TECHNIQUE: Abdominal MRCP is performed utilizing various T1 and T2-weighted sequences in the axial an d coronal planes. 3-D reformats are created and assessed. IV contrast was not administered for this e xamination. FINDINGS: The gallbladder is distended and contains stones and sludge. The gallbladder wall is mildly thickened . There is pericholecystic fluid. The appearance is typical for acute cholecystitis. The common bile duct is dilated, measuring up to 10 mm in diameter. There are filling defects within the distal commo n bile duct above the ampulla measuring up to 9 mm consistent with choledocholithiasis. There is mild intrahepatic biliary ductal dilatation. The pancreatic duct is normal in caliber. The unenhanced liver, spleen, pancreas, adrenal glands, and kidneys are grossly normal. The abdominal aorta is normal in caliber. There is no bowel obstruction. No abdominal ascites is seen. No pleural effusion is identified. The bony structures are grossly intact. IMPRESSION: Cholelithiasis and choledocholithiasis with evidence of acute cholecystitis. Dictated: 04/28/2022 8:35 PM Transcribed: 04/28/2022 8:43 PM Rosa [id number] [facility] Electronically signed by: Francesco Pérez M.D. 04/28/2022 8:45 PM
[2022-04-28] MEDS ORDERED: MoRPHine SULFATE 2 MG/ML CARP IV PRN (21:57)
[2022-04-28] MEDS: MoRPHine SULFATE 4 MG/ML 1 ML CARP\\VIAL IV PRN (22:33)
[2022-04-28] MEDS: LACTATED RINGER'S 1,000 ML IV SCH (22:34)
[2022-04-28] MEDS: ONDANSETRON INJ 2 MG/ML 2 ML VIAL IV PRN (22:34)
[2022-04-29] MEDS: metroNIDAZOLE 500 MG/100 ML BAG IV SCH ×3 (01:43→17:12)
[2022-04-29] MEDS: MoRPHine SULFATE 4 MG/ML 1 ML CARP\\VIAL IV PRN ×2 (04:10→11:24)
[2022-04-29] MEDS: ONDANSETRON INJ 2 MG/ML 2 ML VIAL IV PRN ×2 (04:10→11:25)
[2022-04-29 07:08] LABS: Basophils # (auto) 0.03 K/uL (0-0.2); Basophils % (auto) 0.4 %; Eosinophils # (auto) 0.03 K/uL (0-0.50); Eosinophils % (auto) 0.4 %; Hematocrit (blood only) 41.7 % (40.1-51.0); Hemoglobin 13.8 g/dl (14.0-18.0); Immature Granulocytes # (auto) 0.02 K/uL (0.00-0.02); Immature Granulocytes % (auto) 0.3 %; Lymphocytes % (auto) 18.1 %; Mean Corpuscular Hemoglobin 30.2 pg (25.0-34.0); Mean Corpuscular Hgb Conc 33.1 g/dL (32.0-36.0); Mean Corpuscular Volume 91.2 fL (80.0-100.0); Mean Platelet Volume 10.1 fL (9.4-12.4); Monocytes # (auto) 0.81 K/uL (0.24-0.82); Monocytes % (auto) 11.3 %; Neutrophils % (auto) 69.5 %; Platelet Count 248 K/uL (130-400); RDW Coefficient of Variation 11.9 % (11.5-14.5); RDW Standard Deviation 39.6 fL (36.4-46.3); Red Blood Count 4.57 M/uL (4.63-6.08); White Blood Count 7.19 K/ul (4.8-10.8)
[2022-04-29] MEDS: LACTATED RINGER'S 1,000 ML IV SCH ×5 (07:16→20:54)
[2022-04-29 07:19] LABS: INR 1.1 (0.9-1.1); Prothrombin Time 11.9 Seconds (9.0-12.0)
[2022-04-29 08:08] LABS: Albumin Globulin Ratio 1.4 (0.9-2); BUN Creatinine Ratio 9.4 (10-20); Calcium 9.1 mg/dl (8.5-10.1); Creatinine Clr Calc Pharmacy 105.4 ml/min; Est GFR (African American) 110.2 ml/min; Est GFR (Non-African American) 95.1 ml/min; Globulin 2.8 gm/dl (2.5-4.0); Potassium 4.1 mmol/L (3.5-5.1); Total Protein 6.8 gm/dl (6.0-8.3)
[2022-04-29] MEDS: cefTRIAXone SODIUM 1,000 MG in DEXTROSE 5% 50 ML IV SCH (08:49)
--- NOTE | 2022-04-29 09:17 | Surgery Consultation ---
Date of Consultation April 29, 2022 Assessment & Plan (1) Cholecystitis: This is a 47y M with a PMH of alcoholic pancreatitis, GERD, anxiety, HTN, who presented to the [facility] ED on 04/28 with complaints of abdominal pain that started yesterday. Patient reports the pain has been on and off over the last couple of months, but has been becoming more frequent and severe. He presented to the ER due to acute onset and un-resolving pain. He was worked up with a CT a/p that showed evidence of acute cholecystitis with intra and extrahepatic biliary ductal dilatation suggestive of choledocholithiasis. Follow up with a RUQ US showed cholelithiasis and biliary sludge with sonographic evidence of acute cholecystitis again along with intra and extrahepatic biliary ductal dilatation. MRCP confirmed cholelithiasis and choledocholithiasis with evidence of acute cholecystis. Today's labs show WBC 7.1. LFT's elevated with Tb: 7, AST: 243, ALT: 488, AlkP: 190, Lipase up at >4000. On exam patient's abdomen soft, non distended, with tenderness to palpation in the epigastric and RUQ regions. GI is following patient and planning on ERCP today. We will plan on proceeding with lap julee tomorrow morning with Dr. Mcclelland. Continue IV abx, NPO with IVF, and NPO at midnight. (2) Choledocholithiasis: Supervising Physician Co-Signing Physician Notes Patient seen and examined, labs and image reviewed, agree with above. 47-year-old male admitted with cholecystitis and suspected choledocholithiasis. History of alcoholic pancreatitis. Since then he has not been drinking for several years but is continue to have these intermittent episodes of epigastric and right upper quadrant pain. On exam he is afebrile stable vitals. He is jaundiced. His abdomen is soft, tender to palpation in the epigastric and right upper quadrant. WBC normal, bilirubin, LFTs, and lipase elevated. MRCP showed choledocholithiasis and cholecystitis. GI to perform ERCP today, we will plan for potential laparoscopic cholecystectomy with possible cholangiogram tomorrow. Continue antibiotics. Risk the procedure were discussed to include but not limited to bleeding, infection, retained stone, bile leak, damage surrounding structures, conversion open, need for future more extensive surgery, nurse of anesthesia. History of Present Illness Attending Physician: Sumanth Law History of Present Illness This is a 47y M with a PMH of alcoholic pancreatitis, GERD, anxiety, HTN, who presented to the [facility] ED on 04/28 with complaints of abdominal pain. Patient reports the pain has been on and off over the last couple of months, but has been becoming more frequent and severe. He notices the pain in the epigastric and RUQ regions, that radiates into the back. It does worsen after eating. In the ER he was worked up with a CT a/p that showed evidence of acute cholecystitis with intra and extrahepatic biliary ductal dilatation suggestive of choledocholithiasis. Follow up with a RUQ US showed cholelithiasis and biliary sludge with sonographic evidence of acute cholecystitis again along with intra and extrahepatic biliary ductal dilatation. MRCP confirmed cholelithiasis and choledocholithiasis with evidence of acute cholecystis. Patient denies any recent alcohol use. He denies any previous abdominal surgical history. No fever s/chills, + nausea. Allergies Allergy/AdvReac Type Severity Reaction Status Date / Time vancomycin AdvReac Unknown Unknown Verified 04/28/22 15:54 Home Medications Medication Instructions Recorded Confirmed Type bupropion HCl 100 mg tablet 100 mg PO TID 02/19/22 04/28/22 History cholecalciferol (vitamin D3) 50 50 mcg PO DAILY 02/19/22 04/28/22 History mcg (2,000 unit) capsule duloxetine 20 mg capsule,delayed 20 mg PO DAILY 02/19/22 04/28/22 History release (Cymbalta) mirtazapine 15 mg tablet 7.5 mg PO HS 02/19/22 04/28/22 History omeprazole 20 mg capsule,delayed 20 mg PO BID 02/19/22 04/28/22 History release [id number]-[id number] 2 - 3 cap PO UD 04/17/22 04/28/22 History 24,000-76,000-120,000 unit capsule,delayed rel (Creon) Patient History Medical History Anxiety state Chronic pancreatitis Elevated PSA GERD (gastroesophageal reflux disease) HTN (hypertension) Vitamin D deficiency Surgical History 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 History of surgery on lower extremity right tibia shaft reconstructive surgery Family History Mother Diabetes Other Gall bladder disease Social History Smoking Status: Never smoker Hx Alcohol Use: No Hx Substance Use: No Preferred Language: Telugu Communication Ability: Effective Hash Slinger Required: No Beliefs That Will Affect Care: None marital status: Single Current Living Situation: Significant Other current occupational status: employed 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 Other Information That Helps Us Care for You: No Feels Safe at Home: Yes Safety Concerns: Feels Safe At This Time Assistive Devices: Glasses Review of Systems Constitutional: no fever and no chills Gastrointestinal: + abdominal pain and + nausea; no vomiting Musculoskeletal: pain that radiates into the back Physical Exam Physical Exam: awake/alert Constitutional: well developed and well nourished; no acute distress Respiratory: normal respiratory effort Gastrointestinal (Abdomen): Inspection/Auscultation: abdomen not distended and no abdominal surgical scar Percussion/Palpation: + abdomen tender (in epigastric and RUQ) and abdomen soft Results & Data ([facility]) Vital Signs (Past 12 Hours) Vital Signs Temp Pulse Resp BP BP Pulse Ox O2 Del Method 04/29/22 07:26 36.6 C 57 L 18 137/81 97 Room Air 04/28/22 22:56 37.4 C 65 16 142/86 H 98 Room Air Diagnostic Findings T SCAN OF THE ABDOMEN AND PELVIS WITH IV CONTRAST CLINICAL HISTORY: Mid abdominal pain. COMPARISON STUDY: Abdominal CT dated 03/05/2022. TECHNIQUE: Following the IV administration of 94 cc of Optiray 300, CT scan of the abdomen and pelvis is performed from the lung bases to the proximal femora. Images are reviewed in the axial, sagittal, and coronal planes. IV contrast was administered without complication. A dose lowering technique was utilized adhering to the principles of ALARA. CT DOSE: 347.72 mGy.cm FINDINGS: Lung bases: The heart is normal in size and without pericardial effusion. The lung bases are clear. Liver: The contrast-enhanced liver is normal in size, contour, and attenuation. There is mild intrahepatic biliary ductal dilatation. The hepatic veins and portal veins are patent. Gallbladder: The gallbladder is distended, and the wall appears thickened. There is minimal surrounding infiltration. The common bile duct is dilated measuring up to 11 mm in diameter. Spleen: Normal in size and attenuation. Pancreas: The pancreas is normal as visualized. The duct is normal in caliber. Adrenal glands: Unremarkable. Kidneys: The contrast enhanced kidneys are normal in size and without hydronephrosis. The kidneys enhance symmetrically. Abdominal vasculature: The abdominal aorta is normal in course and caliber. Bowel: There is mild to moderate colonic fecal retention. No bowel obstruction is seen. The appendix is normal as visualized. Peritoneum: There is a small volume of free fluid in the pelvis. No intraperitoneal free air is identified. There is a fat-containing umbilical hernia. Lymphadenopathy: None. Pelvic viscera: The bladder is distended but otherwise normal in appearance. The prostate and seminal vesicles are normal as visualized. Skeletal structures: No lytic or blastic lesions are seen. IMPRESSION: 1. There is CT evidence of acute cholecystitis. Correlate with clinical and laboratory findings. 2. Intra and extrahepatic biliary ductal dilatation suggest choledocholithiasis as causative. 3. The pancreas is normal as visualized. 4. Free fluid in the pelvis is likely reactive. 5. Additional findings as above. ACT 112: Negative or not required by law. Electronically signed by: Francesco Pérez M.D. 04/28/2022 2:22 PM ULTRASOUND RIGHT UPPER QUADRANT ABDOMEN CLINICAL HISTORY: Right upper quadrant abdominal pain. Elevated hepatic transaminases. COMPARISON STUDY: Abdominal CT dated 04/28/2022. TECHNIQUE: Real-time, grayscale, and color flow sonography of the right upper quadrant of the abdomen was performed. Images are reviewed in the transverse and longitudinal planes. FINDINGS: Liver: The liver is normal in size and echotexture. There is mild intrahepatic biliary ductal dilatation. The main portal vein is patent. Gallbladder: The gallbladder is distended, containing stones and sludge. The gallbladder wall is top normal in thickness measuring up to 3 mm. There is trace pericholecystic fluid. A sonographic Sellers's sign could not be assessed as the patient received analgesia. The common bile duct is dilated, measuring up to 1.1 cm in diameter. Pancreas: Visualized portions of the pancreatic head and body are normal in appearance. Right kidney: Survey images of the right kidney demonstrate normal size and echotexture. There is no hydronephrosis. Ascites: None. IMPRESSION: 1. Cholelithiasis and biliary sludge with sonographic evidence of acute cholecystitis. Surgical assessment is advised. 2. There is intra and extrahepatic biliary ductal dilatation. ACT 112: Negative or not required by law. Electronically signed by: Francesco Pérez M.D. 04/28/2022 3:28 PM MRCP CLINICAL HISTORY: Acute cholecystitis. COMPARISON STUDY: Abdominal CT and abdominal ultrasound dated 04/28/2022. TECHNIQUE: Abdominal MRCP is performed utilizing various T1 and T2-weighted sequences in the axial and coronal planes. 3-D reformats are created and assessed. IV contrast was not administered for this examination. FINDINGS: The gallbladder is distended and contains stones and sludge. The gallbladder wall is mildly thickened. There is pericholecystic fluid. The appearance is typical for acute cholecystitis. The common bile duct is dilated, measuring up to 10 mm in diameter. There are filling defects within the distal common bile duct above the ampulla measuring up to 9 mm consistent with choledocholithiasis. There is mild intrahepatic biliary ductal dilatation. The pancreatic duct is normal in caliber. The unenhanced liver, spleen, pancreas, adrenal glands, and kidneys are grossly normal. The abdominal aorta is normal in caliber. There is no bowel obstruction. No abdominal ascites is seen. No pleural effusion is identified. The bony structures are grossly intact. IMPRESSION: Cholelithiasis and choledocholithiasis with evidence of acute cholecystitis. Dictated: 04/28/2022 8:35 PM Transcribed: 04/28/2022 8:43 PM Rosa [id number] [facility] Electronically signed by: Francesco Pérez M.D. 04/28/2022 8:45 PM PG Care Time/CCT Total # of Minutes Spent Total Time Spent with Patient: Total time spent is greater than 50% in coordination of care (as documented) at patient's floor/unit and/or counseling patient: Coding Level of Care Code 63954 Inpt Consult Level 3 Diagnoses Cholecystitis K81.9 Choledocholithiasis K80.50
--- NOTE | 2022-04-29 11:32 | Gastroenterology Progress Note ---
Date of Service April 29, 2022 Assessment & Plan (1) Cholecystitis with cholelithiasis: Plan: And choledocholithiasis w/o evidence of cholangitis. Now w GS pancreatitis Plan LR at 250/hr ERCP today. Further recommendations to follow ERCP. Admission and Anticipated Discharge Date Admission Date: April 28, 2022 Supervising Physician Co-Signing Physician Notes I performed a history and physical examination of the patient today, including specifically on physical exam - soft abdomen. I have discussed the patient's management with the advanced practitioner. Please refer to the nurse practitioner's note for the documented findings and plan of care. ERCP Patient was explained in detail regarding risks, benefits, limitations and alternatives of the above endoscopic procedure. Risks of intravenous sedation used for procedure were also explained. Risks include, but not limited to perforation, bleeding, infection, respiratory distress, cardiac arrest and . Patient is also aware about the possibility of missed lesion. Patient's questions were answered. The patient verbalized understanding the information and agreed to undergo the procedure. Subjective 47 Male, cholecystitis, +worsened upper abd pain today. + Lipase >4000 - pancreatitis Hb 13.8, Cr 0.9. LFTs increased T BIli 4 yesterday to 7 today No leukocytosis or fever. Hemodynamically stable. Review of Systems Review of Systems: ROS: Gen: Denies weakness, fevers, weight loss Eyes: No eye redness, or pain, no recent vision changes Resp: No SOB, no cough Cardio: No palpitations/irregular beats, no chest pain GI: As per HPI, otherwise (-) : Denies pain on urination Skin: + jaundice, +itching or new rashes Physical Exam Constitutional: WD/WN, vitals as above Eyes: PERRL, conjunctivae normal, anicteric sclerae ENMT: external ear and nose normal, oropharynx normal Neck: trachea midline, no thyromegaly Respiratory: normal respiratory effort, lungs clear to auscultation Cardiovascular: RRR, no murmur, no edema Gastrointestinal (Abdomen): Inspection/Auscultation: abdomen normal to inspection and + hypoactive bowel sounds; abdomen not distended Percussion/Palpation: + abdomen tender (epigastric and RUQ moderate tenderness) and abdomen soft Skin: normal turgor and + jaundice Neurologic: PERRL, EOMI, accommodation nl, no face palsy, no dysarthria Psychiatric: A+Ox3, euthymic affect Lymphatic: no cervical or axillary lymphadenopathy Results & Data ([facility]) Vital Signs (Past 12 Hours) Vital Signs Temp Pulse Resp BP Pulse Ox O2 Del Method 04/29/22 07:26 36.6 C 57 L 18 137/81 97 Room Air Laboratory Results WBC 7, Hb 13, Hct 41, Plts 248, PT 11.9, NR 1.1, Na 135, K 3.5, Cl 106, CO2 25, BUN 31, Cr 0.78, glucose 93. Diagnostic Findings MRCP Cholelithiasis and choledocholithiasis with evidence of acute cholecystitis.
[2022-04-29] MEDS ORDERED: ONDANSETRON INJ 2 MG/ML 2 ML VIAL ONE (14:40)
[2022-04-29] MEDS ORDERED: ROCURONIUM BROMIDE 10 MG/ML 5 ML VIAL IV ONE (14:40)
[2022-04-29] MEDS ORDERED: PROPOFOL IV EMULSION 10 MG/ML 20 ML VIAL IV ONE ×2 (14:40→15:52)
[2022-04-29] MEDS ORDERED: LIDOCAINE 2% MPF LOCAL 5 ML VIAL INFIL ONE (14:40)
[2022-04-29] MEDS ORDERED: SUCCINYLCHOLINE CHLORIDE 20 MG/ML 10 ML VIAL IV ONE (14:40)
[2022-04-29] MEDS ORDERED: MIDAZOLAM HCL 1 MG/ML 2ML VIAL ONE (14:40)
[2022-04-29] MEDS ORDERED: fentaNYL citrate 100 MCG/2 ML VIAL ONE (14:40)
--- NOTE | 2022-04-29 14:52 | Anesthesiology Consultation ---
Date of Service April 29, 2022 Assessment & Plan (1) Encounter for pre-operative examination: Chart Review Chart Review: Acceptable Risk for Surgery and Patient NOT seen in Pre Admission Testing Consults Requested none History Surgery Operation Date: 04/29/22 07:00 Proposed Procedures p Endoscopic Retrograde Cholangiopancreato - Evon Luna MD Operation Date: 04/30/22 08:15 Proposed Procedures p Laparoscopic Cholecystectomy - Jason Mcclelland DO, FACS Height/Weight Height: 6 ft Weight: 76.7 kg Allergies Allergy/AdvReac Type Severity Reaction Status Date / Time vancomycin AdvReac Unknown Unknown Verified 04/28/22 15:54 Medications Home Medications Medication Instructions Recorded Confirmed Last Taken bupropion HCl 100 mg tablet 100 mg PO TID 02/19/22 04/28/22 04/16/22 cholecalciferol (vitamin D3) 50 50 mcg PO DAILY 02/19/22 04/28/22 04/16/22 mcg (2,000 unit) capsule duloxetine 20 mg capsule,delayed 20 mg PO DAILY 02/19/22 04/28/22 04/16/22 release (Cymbalta) mirtazapine 15 mg tablet 7.5 mg PO HS 02/19/22 04/28/22 04/16/22 omeprazole 20 mg capsule,delayed 20 mg PO BID 02/19/22 04/28/22 04/16/22 release [id number]-[id number]-[id number] 2 - 3 cap PO UD 04/17/22 04/28/22 04/16/22 24,000-76,000-120,000 unit capsule,delayed rel (Creon) Active Medications Generic Name Dose Route Start Last Admin Trade Name Bianca PRN Reason Stop Dose Admin Lactated Ringer's 1,000 mls @ 250 mls/hr 04/28/22 21:57 04/29/22 14:27 Lr IV 05/28/22 21:56 250 mls/hr .Q4H JASMIN Administration Ceftriaxone Sodium 1,000 mg/ 60 mls @ 100 mls/hr 04/29/22 09:00 04/29/22 09:48 Dextrose IV 05/09/22 08:59 Infused DAILY JASMIN Infusion Protocol Metronidazole 500 mg in 100 mls @ 100 mls/hr 04/29/22 02:00 04/29/22 10:42 Flagyl IV 05/09/22 01:59 Infused Q8H JASMIN Infusion Morphine Sulfate 4 mg 04/28/22 21:57 04/29/22 11:24 Morphine Sulfate 4 Mg/Ml 1 Ml Carp\Vial IV 05/12/22 21:56 4 mg Q4H PRN Administration Pain (6,7,8,9,10) Ondansetron HCl 4 mg 04/28/22 21:57 04/29/22 11:25 Ondansetron Inj 2 Mg/Ml 2 Ml Vial IV 05/28/22 21:56 4 mg Q6H PRN Administration Nausea NPO Date Last Intake of Fluids: 04/28/22 Time Last Intake of Fluids: 23:59 Date Last Intake of Solids: 04/28/22 Time Last Intake of Solids: 23:59 Past Medical History Medical History Anxiety state Chronic pancreatitis Elevated PSA GERD (gastroesophageal reflux disease) HTN (hypertension) Vitamin D deficiency Past Family History Family History Mother Diabetes Other Gall bladder disease Past Surgical History Surgical History 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 History of surgery on lower extremity right tibia shaft reconstructive surgery Social History Smoking Status: Never smoker Hx Alcohol Use: No Hx Substance Use: No substance use type: does not use Physical Exam Vital Signs Last Vital Signs Temp 97.9 F 04/29/22 07:26 Pulse 57 L 04/29/22 07:26 Resp 18 04/29/22 07:26 BP 137/81 04/29/22 07:26 Pulse Ox 97 04/29/22 07:26 O2 Del Method 04/29/22 07:26 Testing Laboratory Results 04/29/22 06:53 04/29/22 06:53 PT 11.9 Seconds (9.0-12.0) 04/29/22 06:53 INR 1.1 (0.9-1.1) 04/29/22 06:53 Urine Color Dark Yellow 04/28/22 13:06 Urine Appearance Clear (Clear) 04/28/22 13:06 Urine pH 7.5 (4.5-7.5) 04/28/22 13:06 Ur Specific [place] 1.013 (1.000-1.030) 04/28/22 13:06 Urine Protein Negative (Negative) 04/28/22 13:06 Urine Glucose (UA) Negative (Negative) 04/28/22 13:06 Urine Ketones Negative (Negative) 04/28/22 13:06 Urine Nitrite Negative (Negative) 04/28/22 13:06 Ur Leukocyte Esterase Negative (Negative) 04/28/22 13:06
[2022-04-29] MEDS ORDERED: LABETALOL HCL IV 5 MG/ML 20ML IV PRN (15:00)
[2022-04-29] MEDS ORDERED: ATROPINE SULFATE 0.1 MG/ML 10ML SYR IV PRN (15:00)
[2022-04-29] MEDS ORDERED: ePHEDrine sulfate 50 MG/ML AMP IV PRN (15:00)
[2022-04-29] MEDS ORDERED: fentaNYL citrate 100 MCG/2 ML VIAL IV PRN (15:00)
[2022-04-29] MEDS ORDERED: FLUMAZENIL 0.1 MG/1 ML 10 ML VIAL IV PRN (15:00)
[2022-04-29] MEDS ORDERED: PROMETHAZINE HCL 12.5 MG in SODIUM CHLORIDE 0.9% 50 ML IV PRN (15:00)
[2022-04-29] MEDS ORDERED: NALOXONE HCL 0.4 MG/1 ML VIAL/CARP IV PRN (15:00)
[2022-04-29] MEDS ORDERED: ONDANSETRON INJ 2 MG/ML 2 ML VIAL IV PRN (15:00)
[2022-04-29] MEDS ORDERED: INDOMETHACIN 50 MG SUPP PR ONE (15:25)
[2022-04-29] MEDS ORDERED: DEXAMETHASONE SOD INJ 4 MG/ML VIAL ONE (15:48)
--- NOTE | 2022-04-29 16:00 | Operative Report ---
Post Operative Report Pre & Post Diagnosis Operation Date: 04/29/22 07:00 Pre-Op Diagnosis: CHOLEDOCLITHIASIS W/ CHOLECYSTITIS Operation Date: 04/30/22 08:15 <No data on this case meets the specified criteria> I identified the patient and participated in the time-out.: Yes Procedure Operation Date: 04/29/22 07:00 <No data on this case meets the specified criteria> Operation Date: 04/30/22 08:15 <No data on this case meets the specified criteria> Surgeon Evon Luna MD Senior Biostatistician None Estimated Blood Loss 0 Findings See Below (Choledocholithiasis removed, acute cholangitis seen. stent placed) Specimens Non Description of Procedure ERCP I attest to the content of the Intraoperative Record and any orders documented therein. Any exceptions are noted below.
--- NOTE | 2022-04-29 16:17 | GI REPORT ---
Patient Name: Konstantin Hutchins Procedure Date: 04/29/2022 3:21 PM Date of : 1975 Admit Type: Inpatient Age: 47 Gender: Male Attending MD: Evon Luna MD Procedure: ERCP Providers: Evon Luna MD Referring MD: Sumanth Law Indications: Bile duct stone on magnetic resonance cholangiopancreatography, For therapy of bile duct stone(s) Medicines: General Anesthesia Complications: No immediate complications. Estimated Blood Loss: Estimated blood loss: none. Procedure: Pre-Anesthesia Assessment: - Prior to the procedure, a History and Physical was performed, and patient medications, allergies and sensitivities were reviewed. The patient's tolerance of previous anesthesia was reviewed. - The risks and benefits of the procedure and the sedation options and risks were discussed with the patient. All questions were answered and informed consent was obtained. - Patient identification and proposed procedure were verified prior to the procedure by the physician and the nurse. The procedure was verified in the procedure room. - Pre-procedure physical examination revealed no contraindications to sedation. After obtaining informed consent, the scope was passed under direct vision. Throughout the procedure, the patient's blood pressure, pulse, and oxygen saturations were monitored continuously. The Duodenoscope was introduced through the mouth, and advanced to the duodenum and used to inject contrast into the bile duct. The ERCP was accomplished without difficulty. The patient tolerated the procedure well. Findings: The wind turbine electrical engineer film was normal. The esophagus was successfully intubated under direct vision. The scope was advanced to a normal major papilla in the descending duodenum without detailed examination of the pharynx, larynx and associated structures, and upper GI tract. The upper GI tract was grossly normal. A 0.025 inch x 270 cm angled Visiglide wire was passed into the biliary tree. The CleverCut distal wire sphincterotome was passed over the guidewire and the bile duct was then deeply cannulated. Contrast was injected. I personally interpreted the bile duct images. Ductal flow of contrast was adequate. Image quality was adequate. Contrast extended to the main bile duct. Opacification of the entire biliary tree was successful. The maximum diameter of the ducts was 9 mm. Biliary sphincterotomy was made with a monofilament traction (standard) sphincterotome using ERBE electrocautery. There was no post-sphincterotomy bleeding. The biliary tree was swept with an 11.5 mm balloon starting at the bifurcation. Two stones were removed. No stones remained. Pus was swept from the duct. One 10 Fr by 8 cm plastic biliary stent with a single external flap and a single internal flap was placed into the common bile duct. Bile flowed through the stent. The stent was in good position. Indomethacin 100 mg was given via suppository to decrease the risk of post-ERCP pancreatitis (PEP). Impression: - Choledocholithiasis was found. Complete removal was accomplished by biliary sphincterotomy and balloon extraction. - The biliary tree was swept and pus was found consistent with acute cholangitis. - One plastic biliary stent was placed into the common bile duct. Recommendation: - Return patient to hospital [facility] for ongoing care. - Repeat ERCP in 6 weeks to remove stent. - ABx. - Surgery to proceed with cholecystectomy. Evon Luna MD 04/29/2022 4:17:43 PM This report has been signed electronically. Note Initiated On: 04/29/2022 3:21 PM Number of Addenda: 0 I attest to the content of the Intraoperative Record and orders documented therein, exceptions below {[id number]}
--- NOTE | 2022-04-29 16:33 | Anesthesiology Progress Note ---
Date of Service April 29, 2022 Anesthesia Post Procedure Vital Signs Vital Signs: Temp Pulse Pulse Resp BP BP Pulse Ox 04/29/22 16:30 37.1 C 76 15 133/80 95 04/29/22 16:20 78 18 136/73 100 04/29/22 16:10 65 16 120/67 99 04/29/22 16:02 36.5 C 68 16 111/59 L 99 04/29/22 15:01 37.2 C 74 20 138/81 96 04/29/22 07:26 36.6 C 57 L 18 137/81 97 04/28/22 22:56 37.4 C 65 16 142/86 H 98 04/28/22 20:16 78 20 127/76 96 04/28/22 19:11 74 18 121/78 100 04/28/22 18:43 75 16 113/94 96 04/28/22 16:51 63 16 127/91 99 O2 Del Method O2 Flow Rate 04/29/22 16:30 Room Air 04/29/22 16:20 Oxymask 4 04/29/22 16:10 Oxymask 8 04/29/22 16:02 Oxymask 10 04/29/22 15:01 Room Air 04/29/22 07:26 Room Air 04/28/22 22:56 Room Air 04/28/22 20:16 Room Air 04/28/22 19:11 Room Air 04/28/22 18:43 Room Air 04/28/22 16:51 Room Air Pain Intensity Upper Medial Abdomen: Pain Intensity: 6 Transfer of Care Handoff Completed per policy Notes Mental Status: alert / awake / arousable Patient Amnestic to Procedure: Yes Nausea / Vomiting: adequately controlled Pain: adequately controlled Airway Patency, RR, SpO2: stable & adequate BP & HR: stable & adequate Hydration State: stable & adequate Anesthetic Complications: no major complications apparent
--- NOTE | 2022-04-29 18:20 | Fluoroscopy Report ---
FL ERCP biliary ductal CLINICAL HISTORY: EXPLORE DUCTS COMPARISON STUDY: CT of the abdomen and pelvis and MRCP April 28, 2022. FLUOROSCOPY TIME: 1 minute. FLUOROSCOPIC IMAGES: 7 FINDINGS: Fluoroscopy was provided during ERCP. Filling defects within the distal common bile duct co uld reflect calculi. These images demonstrate cannulation of the common bile duct with balloon sweep through the common bile duct and placement of a biliary stent. IMPRESSION: Fluoroscopy provided during ERCP with placement of a biliary stent. ACT 112: Negative or not required by law. Electronically signed by: Sanford Lawrence M.D. 04/29/2022 6:18 PM
[2022-04-29] MEDS: ACETAMINOPHEN 1,000 MG/100 ML VIAL IV PRN (21:16)
[2022-04-29] MEDS ORDERED: traMADol HCL 50 MG TABLET PO PRN (22:21)
--- NOTE | 2022-04-29 23:30 | Hospitalist Progress Note ---
Date of Service April 29, 2022 Assessment & Plan (1) Acute cholangitis due to calculus of bile duct with obstruction: Plan: s/p ERCP today with removal of 2 CBD stones. Pus seen c/w cholangitis. Blood cx's negative. Cont IV rocephin + IV flagyl. Will need course of PO abx even after lap julee is complete. Repeat LFTs in am. Cont IV fluids. (2) Choledocholithiasis: Plan: s/p ERCP with removal of 2 CBD stones. Appreciate [facility] GI assistance (Dr Luna). Repeat ERCP 6 weeks for stent removal. No NSAIDs. Repeat LFTs am. See #1 as well. (3) Acute gallstone pancreatitis: Plan: Lipase >4000. Repeat lipase in am. Cont copious LR. s/p ERCP today. (4) Cholecystitis: Plan: Acute cholecystitis. Gen Surgery consulted - for lap julee tomorrow. Cont IV Rocephin and IV Flagyl. (5) Chronic pancreatitis: Plan: Has been followed by [facility] GI for such and has been treated with creon. However, imaging studies do not show chronic pancreatitis findings such as c alcifications. Denies diarrhea or PI symptoms. Perhaps his biliary tract disease was the cause of his chronic abdominal complaints? Once gall bladder is removed and he has recovered we shall see what his chronic symptoms do. (6) GERD (gastroesophageal reflux disease): Plan: Cont PPI (7) Anxiety state: Plan: Resume PO meds for such (8) Vitamin D deficiency: Plan DVT proph - low risk - defer on chemical means at this time especially in light of ERCP today Cont LR Admission and Anticipated Discharge Date Admission Date: April 28, 2022 Subjective saw patient post-ERCP abdominal pain MUCH improved following such no vomiting in over 24 hours occasional nausea passing flatus ERCP showed evidence of 2 CBD stones - removed - along with pus c/w cholangitis 1 plastic sent placed in CBD to have lap julee tomorrow Review of Systems Review of Systems: gen - no fevers cv - no cp pulm - no dyspnea GI - see HPI Physical Exam Physical Exam: gen - NAD, looks good, looks comfortable skin - jaundice over face eyes - icteric sclera mouth - MMM heart - RRR, s1 s2, no murmur lungs - CTA b/l abd - soft NT ND BS+; no HSM; no peritoneal signs ext - no edema, pulses 2+ b/l Results & Data Results & Data ([facility]) Vital Signs (Past 12 Hours) Vital Signs Temp Pulse Pulse Pulse Resp BP BP 04/29/22 22:14 36.4 C L 56 L 14 113/68 04/29/22 19:50 36.6 C 64 14 116/69 04/29/22 18:44 36.6 C 58 L 18 118/72 04/29/22 17:45 36.8 C 67 18 129/78 04/29/22 17:15 36.8 C 70 16 125/74 04/29/22 16:45 36.8 C 67 18 135/78 04/29/22 16:30 37.1 C 76 15 133/80 04/29/22 16:20 78 18 136/73 04/29/22 16:10 65 16 120/67 04/29/22 16:02 36.5 C 68 16 111/59 L 04/29/22 15:01 37.2 C 74 20 138/81 Pulse Ox O2 Del Method O2 Flow Rate 04/29/22 22:14 97 Room Air 04/29/22 19:50 98 Room Air 04/29/22 18:44 98 Room Air 04/29/22 17:45 96 Room Air 04/29/22 17:15 95 Room Air 04/29/22 16:45 96 Room Air 04/29/22 16:30 95 Room Air 04/29/22 16:20 100 Oxymask 4 04/29/22 16:10 99 Oxymask 8 04/29/22 16:02 99 Oxymask 10 04/29/22 15:01 96 Room Air Laboratory Results Laboratory Results - last 24 hr 04/29/22 04/29/22 04/29/22 06:53 06:53 06:53 WBC 7.19 RBC 4.57 L Hgb 13.8 L Hct 41.7 MCV 91.2 MCH 30.2 MCHC 33.1 RDW Std Deviation 39.6 RDW Coeff of Mayra 11.9 Plt Count 248 MPV 10.1 Immature Gran % (Auto) 0.3 Neut % (Auto) 69.5 Lymph % (Auto) 18.1 [place] % (Auto) 11.3 Eos % (Auto) 0.4 Baso % (Auto) 0.4 Neut # (Auto) 5.00 Lymph # (Auto) 1.30 [place] # (Auto) 0.81 Eos # (Auto) 0.03 Baso # (Auto) 0.03 Immature Gran # (Auto) 0.02 PT 11.9 INR 1.1 Sodium 140 Potassium 4.1 Chloride 106 Carbon Dioxide 26 Anion Gap 8 BUN 9 Creatinine 0.96 Est Cr Clr Drug Dosing 105.4 Est GFR ( Amer) 110.2 Est GFR (Non-Af Amer) 95.1 BUN/Creatinine Ratio 9.4 L Glucose 93 Calcium 9.1 Total Bilirubin 7.0 H D AST 243 H ALT 488 H Alkaline Phosphatase 190 H Total Protein 6.8 Albumin 4.0 Globulin 2.8 Albumin/Globulin Ratio 1.4 Lipase 4614 H PG Care Time/CCT Total # of Minutes Spent Total Time Spent with Patient: Total time spent is greater than 50% in coordination of care (as documented) at patient's floor/unit and/or counseling patient: Coding Level of Care Code 87901 Subseq Hosp Care Lvl 2 Diagnoses Acute cholangitis due to calculus of bile duct with obstruction K80.33 Choledocholithiasis K80.50 Acute gallstone pancreatitis K85.10 Cholecystitis K81.9 Chronic pancreatitis K86.1 GERD (gastroesophageal reflux disease) K21.9 Anxiety state F41.1 Vitamin D deficiency E55.9
[2022-04-30] MEDS: LACTATED RINGER'S 1,000 ML IV SCH ×3 (00:49→16:13)
[2022-04-30] MEDS: metroNIDAZOLE 500 MG/100 ML BAG IV SCH ×3 (01:39→17:53)
[2022-04-30] MEDS ORDERED: SUGAMMADEX SODIUM 200 MG/2 ML VIAL IV ONE (06:40)
[2022-04-30] MEDS ORDERED: fentaNYL citrate 100 MCG/2 ML VIAL ONE ×2 (06:53→09:34)
[2022-04-30] MEDS ORDERED: MIDAZOLAM HCL 1 MG/ML 2ML VIAL ONE (06:53)
[2022-04-30] MEDS ORDERED: DEXAMETHASONE SOD INJ 4 MG/ML VIAL ONE (07:06)
[2022-04-30] MEDS ORDERED: PROPOFOL IV EMULSION 10 MG/ML 20 ML VIAL IV ONE ×2 (07:06→09:38)
[2022-04-30] MEDS ORDERED: ROCURONIUM BROMIDE 10 MG/ML 5 ML VIAL IV ONE (07:06)
[2022-04-30] MEDS ORDERED: LIDOCAINE 2% MPF LOCAL 5 ML VIAL INFIL ONE (07:06)
[2022-04-30] MEDS ORDERED: ONDANSETRON INJ 2 MG/ML 2 ML VIAL ONE (07:06)
[2022-04-30] MEDS ORDERED: ONDANSETRON INJ 2 MG/ML 2 ML VIAL IV PRN (07:47)
[2022-04-30] MEDS ORDERED: ePHEDrine sulfate 50 MG/ML AMP IV PRN (07:47)
[2022-04-30] MEDS ORDERED: ATROPINE SULFATE 0.1 MG/ML 10ML SYR IV PRN (07:47)
[2022-04-30] MEDS ORDERED: HYDROmorphone INJ 2 MG/ML SYR/VIAL IV PRN (07:47)
--- NOTE | 2022-04-30 07:47 | Anesthesiology Consultation ---
Date of Service April 30, 2022 Assessment & Plan ASA ASA2 Proposed Anesthesia Anesthesia Type: General Risk / Benefits Reviewed With: PT / POA / Parent / Guardian, Accepts Plan and Informed Consent Obtained History Surgery Operation Date: 04/29/22 07:00 Proposed Procedures p Endoscopic Retrograde Cholangiopancreato - Evon Luna MD Operation Date: 04/30/22 08:15 Proposed Procedures p Laparoscopic Cholecystectomy - Jason Mcclelland DO, FACS Height/Weight Height: 6 ft Weight: 76.7 kg Allergies Allergy/AdvReac Type Severity Reaction Status Date / Time vancomycin AdvReac Unknown Unknown Verified 04/28/22 15:54 Medications Home Medications Medication Instructions Recorded Confirmed Last Taken bupropion HCl 100 mg tablet 100 mg PO TID 02/19/22 04/28/22 04/16/22 cholecalciferol (vitamin D3) 50 50 mcg PO DAILY 02/19/22 04/28/22 04/16/22 mcg (2,000 unit) capsule duloxetine 20 mg capsule,delayed 20 mg PO DAILY 02/19/22 04/28/22 04/16/22 release (Cymbalta) mirtazapine 15 mg tablet 7.5 mg PO HS 02/19/22 04/28/22 04/16/22 omeprazole 20 mg capsule,delayed 20 mg PO BID 02/19/22 04/28/22 04/16/22 release yttqlj-mixwqosh-[id number] 2 - 3 cap PO UD 04/17/22 04/28/22 04/16/22 24,000-76,000-120,000 unit capsule,delayed rel (Creon) Active Medications Generic Name Dose Route Start Last Admin Trade Name Schuylerq PRN Reason Stop Dose Admin Acetaminophen 1,000 mg in 100 mls @ 400 mls/hr 04/28/22 21:57 04/29/22 21:38 Ofirmev IV 05/01/22 21:56 Infused Q8H PRN Infusion Pain or Fever Lactated Ringer's 1,000 mls @ 150 mls/hr 04/28/22 21:57 04/30/22 07:13 Lr IV 05/28/22 21:56 0 mls/hr .Q6H40M JASMIN Infusion Ceftriaxone Sodium 1,000 mg/ 60 mls @ 100 mls/hr 04/29/22 09:00 04/29/22 09:48 Dextrose IV 05/09/22 08:59 Infused DAILY JASMIN Infusion Protocol Metronidazole 500 mg in 100 mls @ 100 mls/hr 04/29/22 02:00 04/30/22 02:40 Flagyl IV 05/09/22 01:59 Infused Q8H JASMIN Infusion Morphine Sulfate 4 mg 04/28/22 21:57 04/29/22 11:24 Morphine Sulfate 4 Mg/Ml 1 Ml Carp\Vial IV 05/12/22 21:56 4 mg Q4H PRN Administration Pain (6,7,8,9,10) Ondansetron HCl 4 mg 04/28/22 21:57 04/29/22 11:25 Ondansetron Inj 2 Mg/Ml 2 Ml Vial IV 05/28/22 21:56 4 mg Q6H PRN Administration Nausea NPO Date Last Intake of Fluids: 04/29/22 Time Last Intake of Fluids: 23:59 Date Last Intake of Solids: 04/27/22 Time Last Intake of Solids: 23:59 Past Medical History Medical History Anxiety state Chronic pancreatitis Elevated PSA GERD (gastroesophageal reflux disease) HTN (hypertension) Vitamin D deficiency Exercise / Class Metabolic Activity II 4-5 Yardwork/Stairs/Walk up hill Past Family History Family History Mother Diabetes Other Gall bladder disease Past Surgical History Surgical History 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 History of surgery on lower extremity right tibia shaft reconstructive surgery Past Anesthesia History No Hx of Anesthesia Complications and No Family Hx of Anesthesia Complications History of PONV No Hx of PONV and No Hx of Motion Sickness Social History Smoking Status: Never smoker Hx Alcohol Use: No Hx Substance Use: No substance use type: does not use Review of Systems denies fever/cough/ colds/ chest pain/ SOB/ DERECK denies DERECK Physical Exam Vital Signs Last Vital Signs Temp 36.5 C 04/30/22 07:15 Pulse 56 L 04/30/22 07:15 Resp 18 04/30/22 07:15 BP 124/79 04/30/22 07:15 Pulse Ox 98 04/30/22 07:15 O2 Del Method 04/30/22 07:15 O2 Flow Rate 4 04/29/22 16:20 ENMT Mouth: no TMJ abnormality and no dentition abnormality Thyromental Distance: > or= 3.5 Finger Breadths Mallampati Class: II Neck neck extension not limited Respiratory normal respiratory effort; no respiratory distress Auscultation: lungs clear to auscultation bilaterally Cardiovascular Rate/Rhythm: regular rate and regular rhythm Neurologic moves all extremities Psychiatric Orientation: alert and oriented x 3 Testing Laboratory Results 04/29/22 06:53 04/29/22 06:53 PT 11.9 Seconds (9.0-12.0) 04/29/22 06:53 INR 1.1 (0.9-1.1) 04/29/22 06:53 Urine Color Dark Yellow 04/28/22 13:06 Urine Appearance Clear (Clear) 04/28/22 13:06 Urine pH 7.5 (4.5-7.5) 04/28/22 13:06 Ur Specific [place] 1.013 (1.000-1.030) 04/28/22 13:06 Urine Protein Negative (Negative) 04/28/22 13:06 Urine Glucose (UA) Negative (Negative) 04/28/22 13:06 Urine Ketones Negative (Negative) 04/28/22 13:06 Urine Nitrite Negative (Negative) 04/28/22 13:06 Ur Leukocyte Esterase Negative (Negative) 04/28/22 13:06 04/28/22 16:26 Aerobic Blood Culture - Preliminary Blood No growth in Aerobic bottle after 24 hours. Anaerobic Blood Culture - Preliminary No growth in Anaerobic bottle after 24 hours. 04/28/22 16:01 Aerobic Blood Culture - Preliminary Blood No growth in Aerobic bottle after 24 hours. Anaerobic Blood Culture - Preliminary No growth in Anaerobic bottle after 24 hours.
[2022-04-30] MEDS ORDERED: BUPIVACAINE 0.5 % 5 MG/1 ML MPF 30ML VIAL ONE (08:13)
[2022-04-30] MEDS: cefTRIAXone SODIUM 1,000 MG in DEXTROSE 5% 50 ML IV SCH (08:26)
--- NOTE | 2022-04-30 08:29 | History & Physical Bridge Note ---
Date of Service April 30, 2022 History & Physical Bridge Note I have examined the patient, reviewed the History & Physical and in the interval since the performance of the History & Physical I have noted the following changes of clinical significance: no changes noted
--- NOTE | 2022-04-30 08:29 | Surgery Progress Note ---
Date of Service April 30, 2022 Assessment & Plan (1) Choledocholithiasis: Plan: 47year old male with cholelithiasis, cholecystitis, and choledocholithiasis status post ERCP plan for laparoscopic cholecystectomy with possible cholangiogram today in the operating room risks discussed to include but not limited to bleeding, infection, retained stone, bile leak, open surgery, damage to surrounding structures including bile duct, need for future or more extensive surgery, failure to treat symptoms, and risks of anesthesia. (2) Cholecystitis: Admission and Anticipated Discharge Date Admission Date: April 28, 2022 Subjective ERCP yesterday, stones removed, stent placed. Feeling better. Review of Systems Review of Systems: All systems reviewed & are unremarkable except as noted in HPI & below Physical Exam Constitutional: WD/WN, vitals as above Gastrointestinal (Abdomen): Percussion/Palpation: + abdomen tender (epigastric and RUQ) Results & Data ([facility]) Vital Signs (Past 12 Hours) Vital Signs Temp Pulse Pulse Resp BP Pulse Ox O2 Del Method 04/30/22 07:15 36.5 C 56 L 18 124/79 98 Room Air 04/30/22 06:21 36.0 C L 70 16 114/69 99 Room Air 04/30/22 03:07 36.4 C L 74 14 114/65 97 Room Air 04/29/22 22:14 36.4 C L 56 L 14 113/68 97 Room Air PG Care Time/CCT Total # of Minutes Spent Total Time Spent with Patient: Total time spent is greater than 50% in coordination of care (as documented) at patient's floor/unit and/or counseling patient: Coding Level of Care Code 20136 Inpt Consult Level 1 Diagnoses Choledocholithiasis K80.50 Cholecystitis K81.9
[2022-04-30] MEDS ORDERED: KETOROLAC 30 MG/ML VIAL ONE (09:32)
--- NOTE | 2022-04-30 10:04 | Operative Report ---
PG Post Operative Report Pre & Post Diagnosis Operation Date: 04/30/22 08:15 Pre-Op Diagnosis: CHOLEDOCLITHIASIS W/ CHOLECYSTITIS Post-Op Diagnosis: CHOLEDOCLITHIASIS W/ CHOLECYSTITIS I identified the patient and participated in the time-out.: Yes Procedure Operation Date: 04/30/22 08:15 Actual Procedures p Laparoscopic Cholecystectomy(Not Applicable) - Jason Mcclelland DO, COLETTE Surgeon Jason Mcclelland DO, COLETTE Pull Over Machine Operator Gabrielle Cutler Estimated Blood Loss 20 Findings Consistent with Post-Op Diagnosis (Choledocholithiasis removed, acute cholangitis seen. stent placed) Significant and acute inflammation. Critical view of safety obtained, cystic duct dilated. 30 mm duron loaded endoscopic ELIZABETH stapler used to divide the duct. Artery clipped and divided. Good hemostasis. Specimens Gallbladder Anesthesia Type General Complications none Disposition Accompanied Patient To Recovery: No Disposition: Recovery Room Indications 47-year-old male admitted with cholecystitis and choledocholithiasis, underwent ERCP yesterday. Plan for laparoscopic cholecystectomy with possible cholangiogram. The risks of the procedure were discussed, all questions were answered, and the patient agreed to proceed with surgery as planned. Description of Procedure The patient was properly identified, consented, and taken to the operating room where he was placed in the supine position. General endotracheal anesthesia was induced. SCDs and a safety belt were placed. Preoperative antibiotics were administered. The patient's abdomen was prepped and draped in the standard sterile fashion. A surgical timeout was performed and all parties were in agreement that this was the correct patient and procedure to be performed and we continued as planned. An incision was made superior and to the left of the umbilicus overlying the rectus muscle and the Veress needle was inserted. Saline drop test confirmed entry into the peritoneum. The abdomen was insufflated with carbon dioxide which the patient tolerated without incident. The abdomen was then entered using the Optiview technique and a 5 mm trocar. The laparoscope was inserted and no damage from initial trocar or Veress needle placement was noted, no gross abnormalities were noted within the 4 quadrants of the abdomen. An 11 mm port was placed in the subxiphoid position and two 5 mm ports were then placed in the right subcostal position. The patient was placed in reverse Trendelenburg position and rotated towards the left. The gallbladder was significantly and acutely inflamed. Omental lesions were taken down with electrocautery. There was some bilious ascites as well. The dome of the gallbladder was retracted towards the left upper quadrant and the infundibulum was retracted toward the right lower quadrant revealing Calot's triangle. Peritoneal attachments were taken down with electrocautery and blunt dissection. There was significant inflammation at the infundibulum. This required slow and steady dissection with a mix of blunt, suction, and cautery dissection. The cystic duct and artery were circumferentially dissected. A window of safety was obtained showing the cystic duct entering the gallbladder with no aberrant structures noted. The cystic duct was dilated and inflamed. The 11 mm port was replaced with a 12 mm port. A 30 mm duron loaded endoscopic ELIZABETH stapler was then used to divide the cystic duct. The cystic artery was doubly clipped and divided. The gallbladder was then lifted off the gallbladder fossa with electrocautery. Bleeding at the gallbladder fossa was controlled with electrocautery. The gallbladder was placed in an Endo Catch bag and removed through the subxiphoid port site. The right upper quadrant was i rrigated and hemostasis was found to be good. 5 mm trochars were removed under direct visualization and the abdomen was allowed to collapse. The subxiphoid port site fascia was closed with 0 Vicryl suture utilizing the Raul-Zack device prior to removal of the ports. The wound was irrigated, and the skin of all ports was closed with 4-0 Monocryl subcuticular sutures. Dermabond was placed over the wounds. The patient was extubated in the operating room and taken to the PACU where he recovered without apparent incident. All sponge, instrument and needle counts were correct at the conclusion of the procedure. The patient tolerated the procedure well. The physician's data assistant was present and scrubbed for the entirety of the case and was essential in positioning the patient, prepping and draping, retraction and exposure, driving the laparoscope, removal of the gallbladder, closure the incisions, and placement of the dressings. I attest to the content of the Intraoperative Record and any orders documented therein. Any exceptions are noted below.
[2022-04-30] MEDS: fentaNYL citrate 100 MCG/2 ML VIAL IV PRN ×2 (10:24→10:29)
--- NOTE | 2022-04-30 10:46 | Anesthesiology Progress Note ---
Date of Service April 30, 2022 Anesthesia Post Procedure Vital Signs Vital Signs: Temp Pulse Pulse Pulse Resp BP BP 04/30/22 10:40 66 14 123/77 04/30/22 10:20 82 18 130/83 04/30/22 10:30 76 12 130/81 04/30/22 10:10 36.0 C L 85 22 117/68 04/30/22 07:15 36.5 C 56 L 18 124/79 04/30/22 06:21 36.0 C L 70 16 114/69 04/30/22 03:07 36.4 C L 74 14 114/65 04/29/22 22:14 36.4 C L 56 L 14 113/68 04/29/22 19:50 36.6 C 64 14 116/69 04/29/22 18:44 36.6 C 58 L 18 118/72 04/29/22 17:45 36.8 C 67 18 129/78 04/29/22 17:15 36.8 C 70 16 125/74 04/29/22 16:45 36.8 C 67 18 135/78 04/29/22 16:30 37.1 C 76 15 133/80 04/29/22 16:20 78 18 136/73 04/29/22 16:10 65 16 120/67 04/29/22 16:02 36.5 C 68 16 111/59 L 04/29/22 15:01 37.2 C 74 20 138/81 Pulse Ox O2 Del Method O2 Flow Rate 04/30/22 10:40 94 Room Air 04/30/22 10:20 100 Oxymask 6 04/30/22 10:30 100 Oxymask 6 04/30/22 10:10 100 Oxymask 6 04/30/22 07:15 98 Room Air 04/30/22 06:21 99 Room Air 04/30/22 03:07 97 Room Air 04/29/22 22:14 97 Room Air 04/29/22 19:50 98 Room Air 04/29/22 18:44 98 Room Air 04/29/22 17:45 96 Room Air 04/29/22 17:15 95 Room Air 04/29/22 16:45 96 Room Air 04/29/22 16:30 95 Room Air 04/29/22 16:20 100 Oxymask 4 04/29/22 16:10 99 Oxymask 8 04/29/22 16:02 99 Oxymask 10 04/29/22 15:01 96 Room Air Pain Intensity Upper Medial Abdomen: Pain Intensity: 6 Transfer of Care Handoff Completed per policy Notes Mental Status: alert / awake / arousable and participated in evaluation Patient Amnestic to Procedure: Yes Nausea / Vomiting: adequately controlled Pain: adequately controlled Airway Patency, RR, SpO2: stable & adequate BP & HR: stable & adequate Hydration State: stable & adequate Anesthetic Complications: no major complications apparent and Pt Satisfied with anesthetic care
[2022-04-30 10:54] LABS: Basophils # (auto) 0.01 K/uL (0-0.2); Basophils % (auto) 0.2 %; Hematocrit (blood only) 41.1 % (40.1-51.0); Hemoglobin 13.5 g/dl (14.0-18.0); Immature Granulocytes # (auto) 0.02 K/uL (0.00-0.02); Immature Granulocytes % (auto) 0.3 %; Lymphocytes # (auto) 0.86 K/uL (1.2-3.4); Lymphocytes % (auto) 13.9 %; Mean Corpuscular Hemoglobin 29.9 pg (25.0-34.0); Mean Corpuscular Hgb Conc 32.8 g/dL (32.0-36.0); Mean Corpuscular Volume 90.9 fL (80.0-100.0); Mean Platelet Volume 10.3 fL (9.4-12.4); Monocytes # (auto) 0.24 K/uL (0.24-0.82); Monocytes % (auto) 3.9 %; Neutrophils # (auto) 5.07 K/uL (1.4-6.5); Neutrophils % (auto) 81.7 %; Platelet Count 212 K/uL (130-400); RDW Coefficient of Variation 11.9 % (11.5-14.5); RDW Standard Deviation 39.3 fL (36.4-46.3); Red Blood Count 4.52 M/uL (4.63-6.08)
[2022-04-30] MEDS ORDERED: oxyCODONE/ACETAMINOPHEN 5mg/325mg TAB PO PRN (11:11)
[2022-04-30 11:18] LABS: Albumin Globulin Ratio 1.4 (0.9-2); Albumin Level 3.7 gm/dl (3.4-5.0); BUN Creatinine Ratio 17.6 (10-20); Bilirubin,Total 6.4 mg/dl (0.2-1.0); Calcium 8.7 mg/dl (8.5-10.1); Creatinine Clr Calc Pharmacy 136.8 ml/min; Est GFR (African American) 129.1 ml/min; Est GFR (Non-African American) 111.4 ml/min; Globulin 2.6 gm/dl (2.5-4.0); Magnesium 1.5 mg/dl (1.7-2.4); Potassium 4.4 mmol/L (3.5-5.1); Total Protein 6.3 gm/dl (6.0-8.3)
[2022-04-30] MEDS: PANTOprazole 40 MG TAB PO SCH ×2 (11:27→20:01)
[2022-04-30] MEDS: buPROPion HCl 100 MG TABLET PO SCH ×3 (11:27→20:01)
[2022-04-30] MEDS: ONDANSETRON INJ 2 MG/ML 2 ML VIAL IV PRN (11:27)
[2022-04-30] MEDS: MAGNESIUM SULFATE / D5W 1 GM/100 ML BAG IV SCH ×2 (12:41→14:05)
--- NOTE | 2022-04-30 13:44 | Gastroenterology Progress Note ---
Date of Service April 30, 2022 Assessment & Plan (1) Cholecystitis with cholelithiasis: Plan: and cholangitis. Now post ERCP w sphincterotomy and extraction of stones. Also post lap cholecystectomy. Doing well. LFTs improving. Plan IV rate and diet per surgery. Broad spectrum antibiotics x 7 days total or per surgery recommendations if they prefer longer. Cipro acceptable for cholangitis. Pt requesting OP GI F/u. Was told by [facility] that has chronic pancreatitis - but CT here w/o evidence of any changes of chronic panc. Our office will call him to arrange OP office visit. Pt to transfer records. Admission and Anticipated Discharge Date Admission Date: April 28, 2022 Supervising Physician Co-Signing Physician Notes Attg add: i interviewed and examined pt, reviewed chart and labs. Pt with some abdominal pain post julee. LFt's improving. Recommendations as above. Will sign off. Subjective ERCP yesterday, stone removed, pus seen consistent w cholangitis, plastic CBD stent placed. Feeling better. Bili slightly improved. Lipase 6k->662. Underwent lap cholecystectomy this morning. Review of Systems Review of Systems: ROS: Gen: Denies weakness, fevers, weight loss Eyes: No eye redness, or pain, no recent vision changes Resp: No SOB, no cough Cardio: No palpitations/irregular beats, no chest pain GI: As per HPI, otherwise (-) : Denies pain on urination Skin: + jaundice, +itching or new rashes Physical Exam Constitutional: WD/WN, vitals as above Eyes: PERRL, conjunctivae normal, anicteric sclerae ENMT: external ear and nose normal, oropharynx normal Neck: trachea midline, no thyromegaly Respiratory: normal respiratory effort, lungs clear to auscultation Cardiovascular: RRR, no murmur, no edema Gastrointestinal (Abdomen): Inspection/Auscultation: abdomen normal to inspection (laparoscopic surgical dressings intact.) and + hypoactive bowel sounds; abdomen not distended Percussion/Palpation: + abdomen tender (epigastric and RUQ moderate tenderness) and abdomen soft Skin: normal turgor and + jaundice Neurologic: PERRL, EOMI, accommodation nl, no face palsy, no dysarthria Psychiatric: A+Ox3, euthymic affect Lymphatic: no cervical or axillary lymphadenopathy Results & Data ([facility]) Vital Signs (Past 12 Hours) Vital Signs Temp Pulse Pulse Resp BP Pulse Ox O2 Del Method 04/30/22 13:00 36.7 C 76 16 142/87 H 97 Room Air 04/30/22 12:00 36.6 C 66 16 121/67 98 Room Air 04/30/22 11:30 36.6 C 66 16 144/80 H 99 Room Air 04/30/22 11:13 36.6 C 64 16 135/76 100 Room Air 04/30/22 10:55 36.3 C L 70 19 128/77 96 Room Air 04/30/22 10:40 66 14 123/77 94 Room Air 04/30/22 10:20 82 18 130/83 100 Oxymask 04/30/22 10:30 76 12 130/81 100 Oxymask 04/30/22 10:10 36.0 C L 85 22 117/68 100 Oxymask 04/30/22 07:15 36.5 C 56 L 18 124/79 98 Room Air 04/30/22 06:21 36.0 C L 70 16 114/69 99 Room Air 04/30/22 03:07 36.4 C L 74 14 114/65 97 Room Air O2 Flow Rate 04/30/22 13:00 04/30/22 12:00 04/30/22 11:30 04/30/22 11:13 04/30/22 10:55 04/30/22 10:40 04/30/22 10:20 6 04/30/22 10:30 6 04/30/22 10:10 6 04/30/22 07:15 04/30/22 06:21 04/30/22 03:07 Laboratory Results WBC 6, Hb 13.5, HCT 41, PLT S2 12, NA 137, K4.4, CL 103, CO2 27, BUN 13, CR 0.7. T bili 6.4, AST 173, ALT 372, alk phos 190 Lipase 4000 yesterday -> 662 today Diagnostic Findings ERCP 04/29/22: - Choledocholithiasis was found. Complete removal was accomplished by biliary sphincterotomy and balloon extraction. - The biliary tree was swept and pus was found consistent with acute cholangitis. - One plastic biliary stent was placed into the common bile duct.
[2022-04-30] MEDS: HYDROmorphone INJ 0.5 MG/0.5 ML SYR IV PRN (14:19)
[2022-04-30] MEDS ORDERED: MIRTAZAPINE TAB 15 MG TAB PO SCH (21:00)
--- NOTE | 2022-04-30 21:45 | Hospitalist Progress Note ---
Date of Service April 30, 2022 Assessment & Plan (1) Acute cholangitis due to calculus of bile duct with obstruction: Plan: POD #1 s/p ERCP with removal of 2 CBD stones. Pus seen c/w cholangitis. Blood cx's negative. Cont IV rocephin + IV flagyl another day, then likely transition to a course of augmentin. Repeat LFTs in am. Cont IV fluids but can lower rate to 75cc/hr. (2) Choledocholithiasis: Plan: POD #1 s/p ERCP with removal of 2 CBD stones. Appreciate [facility] GI assistance (Dr Luna). Repeat ERCP 6 weeks for stent removal. No NSAIDs. Repeat LFTs am. Treat cholangitis as above. (3) Acute gallstone pancreatitis: Plan: Peak Lipase >4000. Repeat lipase improved today. Cont LR. Repeat lipase am. (4) Cholecystitis: Plan: Acute cholecystitis. s/p lap julee today. Appreciate gen surg assistance. (5) Chronic pancreatitis: Plan: Has been followed by [facility] GI for such and has been treated with creon. However, imaging studies do not show chronic pancreatitis findings such as calcifications. Denies diarrhea or PI symptoms. Perhaps his biliary tract disease was the cause of his chronic abdominal complaints? Once gall bladder is removed and he has recovered we shall see what his chronic symptoms do. (6) GERD (gastroesophageal reflux disease): Plan: Cont PPI (7) Anxiety state: Plan: cont usual outpatient meds (8) Vitamin D deficiency: Plan: can resume supplementation at d/c Plan DVT proph - low risk - defer on chemical means; ambulation home next 48 hours? Admission and Anticipated Discharge Date Admission Date: April 28, 2022 Subjective saw patient post lap julee "sore" due to the surgery itself but able to tolerate liquid tray no nausea no vomiting step-mother at bedside passing flatus Review of Systems Review of Systems: gen - no fevers cv - no chest pain, no orthopnea pulm - no dyspnea GI - no vomiting Physical Exam Physical Exam: gen - NAD, looks comfortable, eating clears skin - jaundice over face improved eyes - icteric sclera remains mouth - MMM heart - RRR, s1 s2, no murmur lungs - CTA b/l abd - soft BS+; no HSM; no peritoneal signs; appropriate incisional tenderness from surgery ext - no edema, pulses 2+ b/l psych - a/o x 3 Results & Data Results & Data ([facility]) Vital Signs (Past 12 Hours) Vital Signs Temp Pulse Pulse Resp BP Pulse Ox O2 Del Method 04/30/22 21:04 36.9 C 68 16 120/73 98 Room Air 04/30/22 19:40 36.9 C 72 14 109/70 97 Room Air 04/30/22 17:29 37 C 68 18 103/63 99 04/30/22 14:00 36.5 C 77 18 124/70 98 Room Air 04/30/22 13:00 36.7 C 76 16 142/87 H 97 Room Air 04/30/22 12:00 36.6 C 66 16 121/67 98 Room Air 04/30/22 11:30 36.6 C 66 16 144/80 H 99 Room Air 04/30/22 11:13 36.6 C 64 16 135/76 100 Room Air 04/30/22 10:55 36.3 C L 70 19 128/77 96 Room Air 04/30/22 10:40 66 14 123/77 94 Room Air 04/30/22 10:20 82 18 130/83 100 Oxymask 04/30/22 10:30 76 12 130/81 100 Oxymask 04/30/22 10:10 36.0 C L 85 22 117/68 100 Oxymask O2 Flow Rate 04/30/22 21:04 04/30/22 19:40 04/30/22 17:29 04/30/22 14:00 04/30/22 13:00 04/30/22 12:00 04/30/22 11:30 04/30/22 11:13 04/30/22 10:55 04/30/22 10:40 04/30/22 10:20 6 04/30/22 10:30 6 04/30/22 10:10 6 Laboratory Results Laboratory Results - last 24 hr 04/30/22 04/30/22 04/30/22 10:30 10:30 10:30 WBC 6.20 RBC 4.52 L Hgb 13.5 L Hct 41.1 MCV 90.9 MCH 29.9 MCHC 32.8 RDW Std Deviation 39.3 RDW Coeff of Mayra 11.9 Plt Count 212 MPV 10.3 Immature Gran % (Auto) 0.3 Neut % (Auto) 81.7 Lymph % (Auto) 13.9 [place] % (Auto) 3.9 Eos % (Auto) 0.0 Baso % (Auto) 0.2 Neut # (Auto) 5.07 Lymph # (Auto) 0.86 L [place] # (Auto) 0.24 Eos # (Auto) 0.00 Baso # (Auto) 0.01 Immature Gran # (Auto) 0.02 Sodium 137 Potassium 4.4 Chloride 103 Carbon Dioxide 27 Anion Gap 7 BUN 13 Creatinine 0.74 Est Cr Clr Drug Dosing 136.8 Est GFR ( Amer) 129.1 Est GFR (Non-Af Amer) 111.4 BUN/Creatinine Ratio 17.6 Glucose 138 H Calcium 8.7 Magnesium 1.5 L Total Bilirubin 6.4 H AST 173 H ALT 372 H Alkaline Phosphatase 190 H Total Protein 6.3 Albumin 3.7 Globulin 2.6 Albumin/Globulin Ratio 1.4 Lipase 662 H PG Care Time/CCT Total # of Minutes Spent Total Time Spent with Patient: Total time spent is greater than 50% in coordination of care (as documented) at patient's floor/unit and/or counseling patient: Coding Level of Care Code 67433 Subseq Hosp Care Lvl 2 Diagnoses Acute cholangitis due to calculus of bile duct with obstruction K80.33 Choledocholithiasis K80.50 Acute gallstone pancreatitis K85.10 Cholecystitis K81.9 Chronic pancreatitis K86.1 GERD (gastroesophageal reflux disease) K21.9 Anxiety state F41.1 Vitamin D deficiency E55.9
[2022-05-01] MEDS: buPROPion HCl 100 MG TABLET PO SCH ×4 (00:19→21:36)
[2022-05-01] MEDS: metroNIDAZOLE 500 MG/100 ML BAG IV SCH ×2 (02:29→09:31)
[2022-05-01] MEDS: LACTATED RINGER'S 1,000 ML IV SCH ×2 (05:34→17:30)
[2022-05-01] MEDS: ACETAMINOPHEN 1,000 MG/100 ML VIAL IV PRN (05:38)
[2022-05-01 07:38] LABS: Albumin Globulin Ratio 1.5 (0.9-2); Albumin Level 3.3 gm/dl (3.4-5.0); Calcium 8.1 mg/dl (8.5-10.1); Creatinine Clr Calc Pharmacy 126.5 ml/min; Est GFR (Non-African American) 107.9 ml/min; Globulin 2.2 gm/dl (2.5-4.0); Magnesium 1.7 mg/dl (1.7-2.4); Potassium 3.7 mmol/L (3.5-5.1); Total Protein 5.5 gm/dl (6.0-8.3)
--- NOTE | 2022-05-01 07:47 | Surgery Progress Note ---
Date of Service May 01, 2022 Assessment & Plan (1) S/P laparoscopic cholecystectomy: Plan: Patient also status post ERCP with stent placement He seems to be doing well this morning Will need to see how he does on a diet Continue IV antibiotics Probable discharge tomorrow Admission and Anticipated Discharge Date Admission Date: April 28, 2022 Subjective Patient awake and alert in no distress this morning He is somewhat hungry Has only had sips of liquids Results & Data ([facility]) Vital Signs (Past 12 Hours) Vital Signs Temp Pulse Resp BP Pulse Ox O2 Del Method 05/01/22 02:45 36.8 C 72 14 124/69 97 Room Air 04/30/22 21:04 36.9 C 68 16 120/73 98 Room Air PG Care Time/CCT Total # of Minutes Spent Total Time Spent with Patient: Total time spent is greater than 50% in coordination of care (as documented) at patient's floor/unit and/or counseling patient: Coding Level of Care Code None Diagnoses S/P laparoscopic cholecystectomy Z90.49
[2022-05-01] MEDS: PANTOprazole 40 MG TAB PO SCH ×2 (08:44→21:35)
[2022-05-01] MEDS: cefTRIAXone SODIUM 1,000 MG in DEXTROSE 5% 50 ML IV SCH (08:47)
[2022-05-01] MEDS: HYDROmorphone INJ 0.5 MG/0.5 ML SYR IV PRN (17:19)
[2022-05-01] MEDS: ONDANSETRON INJ 2 MG/ML 2 ML VIAL IV PRN (17:24)
[2022-05-01] MEDS: AMOXICILLIN/CLAVULANATE 875 MG TAB PO SCH (17:30)
--- NOTE | 2022-05-01 20:00 | Hospitalist Progress Note ---
Date of Service May 01, 2022 Assessment & Plan (1) Acute cholangitis due to calculus of bile duct with obstruction: Plan: POD #2 s/p ERCP with removal of 2 CBD stones. Pus seen c/w cholangitis. Blood cx's negative. stop IV rocephin + IV flagyl change to augmentin BID x 7 days for cholangitis Repeat LFTs in am. Cont IV fluids but can lower rate to 50cc/hr. (2) Choledocholithiasis: Plan: POD #2 s/p ERCP with removal of 2 CBD stones. [facility] (Dr Luna). Repeat ERCP 6 weeks for stent removal. No NSAIDs x 5 total days. Repeat LFTs am. Treat cholangitis as above. (3) Acute gallstone pancreatitis: Plan: Peak Lipase >4000. Repeat lipase improved/nearly resolved today. Cont LR but reduce rate. advance diet to full liquids. Repeat lipase am. (4) Cholecystitis: Plan: POD #1 s/p lap julee for Acute (on probable chronic) cholecystitis. Appreciate gen surg assistance. advance diet. pain control. ambulate. (5) Chronic pancreatitis: Plan: Has been followed by [facility] GI for such and has been treated with creon. However, imaging studies do not show chronic pancreatitis findings such as calcifications. Denies diarrhea or PI symptoms. Perhaps his biliary tract disease was the cause of his chronic abdominal complaints? Once gall bladder is removed and he has recovered we shall see what his chronic symptoms do. (6) GERD (gastroesophageal reflux disease): Plan: Cont PPI (7) Anxiety state: Plan: cont usual outpatient meds (8) Vitamin D deficiency: Plan: can resume supplementation at d/c (9) Hematuria: Plan: chronic with appropriate w/[place] [facility] [place]iah check a ua but suspect the hematuria is more of the chronic issue he has been having he will need f/u with urology post-d/c since the issue continues and he has elevated PSA Plan DVT proph - low risk - defer on chemical means; ambulation hopefully home tomorrow Admission and Anticipated Discharge Date Admission Date: April 28, 2022 Subjective had mild gross hematuria this afternoon of note - he has w/u for gross hematuria in the last few months with Dr Appiah - [facility] underwent cystoscopy, MRI prostate, etc. exact cause of hematuria was uncertain - cysto was negative by his report no dysuria mild abdominal pain mild nausea but no emesis and tolerating clears passing flatus Review of Systems Review of Systems: gen - no fevers cv - no cp pulm - no dyspnea - frequency, hematuria; no dysuria Physical Exam Physical Exam: gen - NAD, looks comfortable skin - jaundice over face improved once again eyes - icteric sclera nearly resolved mouth - MMM heart - RRR, s1 s2, no murmur lungs - CTA b/l abd - soft BS+; no HSM; no peritoneal signs; appropriate incisional tenderness from surgery; not distended ext - no edema, pulses 2+ b/l psych - a/o x 3 Results & Data Results & Data ([facility]) Vital Signs (Past 12 Hours) Vital Signs Temp Pulse Resp BP Pulse Ox O2 Del Method 05/01/22 16:00 37.3 C 72 20 124/83 99 Room Air 05/01/22 12:40 37.1 C 66 18 144/84 H 100 Room Air Laboratory Results Laboratory Results - last 24 hr 05/01/22 06:45 Sodium 139 Potassium 3.7 Chloride 106 Carbon Dioxide 29 Anion Gap 4 BUN 12 Creatinine 0.80 Est Cr Clr Drug Dosing 126.5 Est GFR ( Amer) 125.0 Est GFR (Non-Af Amer) 107.9 BUN/Creatinine Ratio 15.0 Glucose 102 H Calcium 8.1 L Magnesium 1.7 Total Bilirubin 2.0 H D AST 105 H ALT 276 H Alkaline Phosphatase 158 H Total Protein 5.5 L Albumin 3.3 L Globulin 2.2 L Albumin/Globulin Ratio 1.5 Lipase 154 H PG Care Time/CCT Total # of Minutes Spent Total Time Spent with Patient: Total time spent is greater than 50% in coordination of care (as documented) at patient's floor/unit and/or counseling patient: Coding Level of Care Code 03809 Subseq Hosp Care Lvl 2 Diagnoses Acute cholangitis due to calculus of bile duct with obstruction K80.33 Choledocholithiasis K80.50 Acute gallstone pancreatitis K85.10 Cholecystitis K81.9 Chronic pancreatitis K86.1 GERD (gastroesophageal reflux disease) K21.9 Anxiety state F41.1 Vitamin D deficiency E55.9 Hematuria R31.9
[2022-05-01 22:03] LABS: Appearance Urine Clear (Clear); Bacteria Urine Automated Negative (Negative); Bilirubin Urine Negative (Negative); Blood Urine Trace (Negative); Cast Urine Automated 0 /lpf (0-5); Color Urine Yellow; Epithelial Cell Urine Auto 0-5 /lpf (0-5); Glucose Urine UA Negative (Negative); Ketones Urine Negative (Negative); Leukocyte Esterase Urine Negative (Negative); Nitrite Urine Negative (Negative); Protein Urine Negative (Negative); RBC Urine Automated 0-4 /hpf (0-4); Specific Gravity Urine 1.008 (1.000-1.030); Urobilinogen Urine Negative (Negative); WBC Urine Automated 0 /hpf (0-5)
[2022-05-02 06:20] LABS: Albumin Globulin Ratio 1.5 (0.9-2); Albumin Level 3.3 gm/dl (3.4-5.0); BUN Creatinine Ratio 11.5 (10-20); Bilirubin,Total 1.7 mg/dl (0.2-1.0); Calcium 8.3 mg/dl (8.5-10.1); Creatinine Clr Calc Pharmacy 129.7 ml/min; Est GFR (African American) 126.3 ml/min; Globulin 2.2 gm/dl (2.5-4.0); Potassium 3.7 mmol/L (3.5-5.1); Total Protein 5.5 gm/dl (6.0-8.3)
[2022-05-02] MEDS: LACTATED RINGER'S 1,000 ML IV SCH (06:28)
--- NOTE | 2022-05-02 06:35 | Surgery Progress Note ---
Date of Service May 02, 2022 Assessment & Plan (1) S/P laparoscopic cholecystectomy: Plan: Also status post ERCP with stent Patient seems to be doing very well on full liquids Will advance to regular diet Can be discharged home from a surgical standpoint Prescription sent for Percocet and Augmentin Activity info in discharge and follow-up Admission and Anticipated Discharge Date Admission Date: April 28, 2022 Results & Data ([facility]) Vital Signs (Past 12 Hours) Vital Signs Temp Pulse Resp BP Pulse Ox O2 Del Method 05/02/22 03:33 37.1 C 73 18 121/69 97 Room Air 05/01/22 23:08 37.1 C 68 16 122/75 98 Room Air 05/01/22 20:20 37.3 C 79 16 129/83 99 Room Air PG Care Time/CCT Total # of Minutes Spent Total Time Spent with Patient: Total time spent is greater than 50% in coordination of care (as documented) at patient's floor/unit and/or counseling patient: Coding Level of Care Code None Diagnoses S/P laparoscopic cholecystectomy Z90.49
[2022-05-02] MEDS: buPROPion HCl 100 MG TABLET PO SCH ×2 (07:53→15:59)
[2022-05-02] MEDS: AMOXICILLIN/CLAVULANATE 875 MG TAB PO SCH ×2 (07:53→17:18)
[2022-05-02] MEDS: PANTOprazole 40 MG TAB PO SCH (07:54)
--- NOTE | 2022-05-02 12:17 | Discharge Summary ---
Date of Service date of admission - April 28, 2022 date of discharge - May 02, 2022 Admission HPI Per Admitting Provider Konstantin Hutchins is a 47-year-old male with a past medical history of chronic pancreatitis secondary to alcohol use, hypertension, depression and anxiety, GERD, vitamin D deficiency who presents today with abdominal pain. He has had intermittent, chronic abdominal pain for several months due to his underlying chronic pancreatitis, however yesterday morning it was acutely worse. It is in his epigastric region and radiates to his back and has been persistent. His lack of appetite, stating that any food or drink he tries to keep down makes his pain worse. He has been nauseous with it, however has no vomiting, no diarrhea, no constipation. He has not had fever or chills at home. He has been told in the past that there has been sludge in his gallbladder. Upon presentation in the ED, he is hemodynamically stable, vital signs within normal limits. CBC unremarkable, CMP with T bili 4.1, AST 425, ALT 64, alk phos 197, otherwise without electrolyte abnormalities, lipase 53, calcium 9.5. His UA with 1+ bilirubin, otherwise unremarkable. CT A/P gallbladder distention with wall thickening, concerning for cholecystitis.there is also intra and extrahepatic biliary ductal dilation suggestive of choledocholithiasis, with the CBD measuring up to 11 mm. The pancreas visualized and normal, there are some free fluid in the pelvis that is likely reactive. There is mild to moderate fecal retention, without obstruction. GBU/S also shows cholelithiasis and biliary sludge with again, intra and extrahepatic biliary ductal dilation. GB wall measuring 3 mm in thickness. Principal Diagnosis 1. choledocholithiasis s/p ERCP 2. acute cholangitis 3. acute cholecystitis 4. gallstone pancreatitis Discharge Exam gen - NAD, looks comfortable skin - jaundice over face resolved eyes - icteric sclera resolved mouth - MMM heart - RRR, s1 s2, no murmur lungs - CTA b/l abd - soft BS+; no HSM; no peritoneal signs; appropriate incisional tenderness from surgery; not distended ext - no edema, pulses 2+ b/l psych - a/o x 3 Discharge Data Allergies Allergy/AdvReac Type Severity Reaction Status Date / Time vancomycin AdvReac Unknown Unknown Verified 04/28/22 15:54 Consultations [facility] [place] Procedures Performed Operation Date: 04/29/22 07:00 Actual Procedures Endoscopic Retrograde Cholangiopancreatogram with sphinecterotomy with stone extraction and biliary stent. - Evon Luna MD * Choledocholithiasis found * Biliary sphincterotomy performed * CBD stones removed * Acute cholangitis seen with CBD pus * CBD stent placed Operation Date: 04/30/22 08:15 Actual Procedures Laparoscopic Cholecystectomy - Jason Mcclelland, DO, FACS Ordered Studies Abdomen/Pelvis CT 04/28/22 13:11 CT SCAN OF THE ABDOMEN AND PELVIS WITH IV CONTRAST CLINICAL HISTORY: Mid abdominal pain. COMPARISON STUDY: Abdominal CT dated 03/05/2022. TECHNIQUE: Following the IV administration of 94 cc of Optiray 300, CT scan of the abdomen and pelvis is performed from the lung bases to the proximal femora. Images are reviewed in the axial, sagittal, and coronal planes. IV contrast was administered without complication. A dose lowering technique was utilized adhering to the principles of ALARA. CT DOSE: 347.72 mGy.cm FINDINGS: Lung bases: The heart is normal in size and without pericardial effusion. The lung bases are clear. Liver: The contrast-enhanced liver is normal in size, contour, and attenuation. There is mild intrahepatic biliary ductal dilatation. The hepatic veins and portal veins are patent. Gallbladder: The gallbladder is distended, and the wall appears thickened. There is minimal surrounding infiltration. The common bile duct is dilated measuring up to 11 mm in diameter. Spleen: Normal in size and attenuation. Pancreas: The pancreas is normal as visualized. The duct is normal in caliber. Adrenal glands: Unremarkable. Kidneys: The contrast enhanced kidneys are normal in size and without hydronephrosis. The kidneys enhance symmetrically. Abdominal vasculature: The abdominal aorta is normal in course and caliber. Bowel: There is mild to moderate colonic fecal retention. No bowel obstruction is seen. The appendix is normal as visualized. Peritoneum: There is a small volume of free fluid in the pelvis. No intraperitoneal free air is identified. There is a fat-containing umbilical hernia. Lymphadenopathy: None. Pelvic viscera: The bladder is distended but otherwise normal in appearance. The prostate and seminal vesicles are normal as visualized. Skeletal structures: No lytic or blastic lesions are seen. IMPRESSION: 1. There is CT evidence of acute cholecystitis. Correlate with clinical and laboratory findings. 2. Intra and extrahepatic biliary ductal dilatation suggest choledocholithiasis as causative. 3. The pancreas is normal as visualized. 4. Free fluid in the pelvis is likely reactive. 5. Additional findings as above. ACT 112: Negative or not required by law. Electronically signed by: Francesco Pérez M.D. 04/28/2022 2:22 PM Gallbladder Ultrasound 04/28/22 14:09 ULTRASOUND RIGHT UPPER QUADRANT ABDOMEN CLINICAL HISTORY: Right upper quadrant abdominal pain. Elevated hepatic transaminases. COMPARISON STUDY: Abdominal CT dated 04/28/2022. TECHNIQUE: Real-time, grayscale, and color flow sonography of the right upper quadrant of the abdomen was performed. Images are reviewed in the transverse and longitudinal planes. FINDINGS: Liver: The liver is normal in size and echotexture. There is mild intrahepatic biliary ductal dilatation. The main portal vein is patent. Gallbladder: The gallbladder is distended, containing stones and sludge. The gal lbladder wall is top normal in thickness measuring up to 3 mm. There is trace pericholecystic fluid. A sonographic Sellers's sign could not be assessed as the patient received analgesia. The common bile duct is dilated, measuring up to 1.1 cm in diameter. Pancreas: Visualized portions of the pancreatic head and body are normal in appearance. Right kidney: Survey images of the right kidney demonstrate normal size and echotexture. There is no hydronephrosis. Ascites: None. IMPRESSION: 1. Cholelithiasis and biliary sludge with sonographic evidence of acute cholecystitis. Surgical assessment is advised. 2. There is intra and extrahepatic biliary ductal dilatation. ACT 112: Negative or not required by law. Electronically signed by: Francesco Pérez M.D. 04/28/2022 3:28 PM Cholangiopancreatography MRI 04/28/22 15:59 MRCP CLINICAL HISTORY: Acute cholecystitis. COMPARISON STUDY: Abdominal CT and abdominal ultrasound dated 04/28/2022. TECHNIQUE: Abdominal MRCP is performed utilizing various T1 and T2-weighted sequences in the axial and coronal planes. 3-D reformats are created and assessed. IV contrast was not administered for this examination. FINDINGS: The gallbladder is distended and contains stones and sludge. The gallbladder wall is mildly thickened. There is pericholecystic fluid. The appearance is typical for acute cholecystitis. The common bile duct is dilated, measuring up to 10 mm in diameter. There are filling defects within the distal common bile duct above the ampulla measuring up to 9 mm consistent with choledocholithiasis. There is mild intrahepatic biliary ductal dilatation. The pancreatic duct is normal in caliber. The unenhanced liver, spleen, pancreas, adrenal glands, and kidneys are grossly normal. The abdominal aorta is normal in caliber. There is no bowel obstruction. No abdominal ascites is seen. No pleural effusion is identified. The bony structures are grossly intact. IMPRESSION: Cholelithiasis and choledocholithiasis with evidence of acute cholecystitis. Dictated: 04/28/2022 8:35 PM Transcribed: 04/28/2022 8:43 PM Rosa [id number] [facility] Electronically signed by: Francesco Pérez M.D. 04/28/2022 8:45 PM Endo Retro Cholangiopancreatogram 04/29/22 15:00 FL ERCP biliary ductal CLINICAL HISTORY: EXPLORE DUCTS COMPARISON STUDY: CT of the abdomen and pelvis and MRCP April 28, 2022. FLUOROSCOPY TIME: 1 minute. FLUOROSCOPIC IMAGES: 7 FINDINGS: Fluoroscopy was provided during ERCP. Filling defects within the distal common bile duct could reflect calculi. These images demonstrate cannulation of the common bile duct with balloon sweep through the common bile duct and placement of a biliary stent. IMPRESSION: Fluoroscopy provided during ERCP with placement of a biliary stent. ACT 112: Negative or not required by law. Electronically signed by: Sanford Lawrence M.D. 04/29/2022 6:18 PM Hospital Course (1) Acute cholangitis due to calculus of bile duct with obstruction: s/p ERCP with removal of 2 CBD stones and CBD stent deployment by Dr Evon Luna - [facility]. Pus seen in the common bile duct c/w cholangitis. Blood cx's remained negative while here. During the hospital stay he received IV rocephin + IV flagyl. He was transitioned to cipro 500mg BID x 7 days for the cholangitis at discharge. He will need stent retrieval in 6 weeks [facility]. He will need repeat LFTs within a week of discharge to ensure they continue to improve. (2) Choledocholithiasis: s/p ERCP with removal of 2 CBD stones. Repeat ERCP 6 weeks for stent removal. No NSAIDs x 5 total days post-ERCP. Treated cholangitis as above. Repeat LFTs within a week of discharge to ensure they continue to improve. (3) Acute gallstone pancreatitis: Peak Lipase >4000. Lipase nearly normalized (was 119) prior to discharge. Post-ERCP and post-cholecystectomy he was initiated on a clear liquid diet. This was advanced without difficulty to low-fat diet. He was tolerating such prior to discharge. He will remain on low-fat diet at home. Recommend repeat lipase level at time of hospital follow-up. (4) Cholecystitis: s/p lap julee for acute (on probable chronic) cholecystitis. Dr Mcclelland from [facility] [place] performed his cholecystectomy. He was passing flatus, tolerating a diet, and incisional pain was well- controlled at time of discharge. He will follow-up with [facility] Gen surg within 2 weeks of discharge. LFTs were high due to his acute cholecystitis, cholangitis, and choledocholithiasis. Peak total bilirubin level was 7, falling to <2 prior to discharge. He should have repeat LFTs at time of hospital follow-up with his PCP. (5) Chronic pancreatitis: Has been followed by [facility] for this suspected di agnosis for several years. He has been treated with creon with meals. However, imaging studies do not show chronic pancreatitis findings such as calcifications. Denies diarrhea or pancreatic insufficiency symptoms. Perhaps his biliary tract disease was the cause of his chronic abdominal complaints? Once gall bladder is removed and he has recovered we shall see what his chronic symptoms do. He will follow-up with [facility] in [place] for these chronic issues. (6) GERD (gastroesophageal reflux disease): Cont PPI (7) Anxiety state: cont usual outpatient meds (8) Vitamin D deficiency: can resume supplementation at d/c (9) Hematuria: chronic has had extensive work-up by [facility] - Dr Appiah - for the problem including MRI prostate gland, CT abd/pelvis, and cystoscopy most recent CT abd/pelvis did not show any urinary tract abnormalities he had mild gross hematuria post-op from his cholecystectomy u/a was largely unremarkable except for traces of blood; u/a was not c/w UTI he will need f/u with urology post-d/c since the issue continues and he has elevated PSA I am suspicious that the intermittent hematuria is from the prostate gland itself Total Time Total Time Spent Total Time Spent (In Minutes): 45 Discharge Plan Discharge Items Patient Disposition: Home - Self-Care Reason For Visit: CHOLEDOCOLITHIASIS W/ CHOLECYSTITIS Discharge Diagnosis: 1. Acute Cholangitis (infection of bile duct) - seen on ERCP 2. Cholecystitis (inflamed, sick gall bladder) - removal of gall bladder by Dr Mcclelland on 04/30/22 3. Choledocholithiasis (gallstones stuck in bile duct) - removal via ERCP by Dr Luna on 04/29/22 Condition on Discharge: Good Activity: Per Instructions section Activity Comment: Light activity for 3 weeks Lifting: No more than 10 pounds Bathing Comment: may shower; no soaking in tubs/pools Sexual Activity: Wait until after follow-up appointment Exercise/Sports: Wait until after follow-up appointment Driving/Machine Use: no driving while taking any narcotics for pain Non-emergency contact: Primary Care Provider, Surgeon and Buggy Lad[employer] Tender Call non-emergency contact if: you have any medication questions, your symptoms worsen, your pain is not controlled, your pain is worsening, your pain is unusual for you, your pain is concerning for you, you have a fever, your wound has increased redness, your wound has increased drainage and your wound pain has increased Follow-up/Referrals: Jason Mcclelland DO, FACS [Physician] - 05/14/22 10:30 am (Please call to schedule follow up in clinic within 2 weeks) Walker Appiah MD [Physician] - 06/15/22 1:40 pm Cory Andersen [Primary Care Provider] - 05/06/22 9:00 am Evon Luna MD [Physician] - (6 weeks for stent removal by [facility]) Diet: Low Fat Addtl Attending Provider Instructions: SPECIAL CARE INSTRUCTIONS from General surgery -- * Cover incisions and change daily for comfort/drainage. -May leave uncovered with Dermabond/skin glue * May use ibuprofen for pain as tolerated. * Expect some swelling and bruising. Call your doctor if: * Temperature above 101 degrees * Pain not relieved by pain medicine ordered * There is increased drainage or redness from any incision * You have any unanswered questions or concerns [phone]. FOLLOW UP VISIT: 05/14/[address] Mcclelland, general surgery clinic. OFFICE PHONE NUMBER: Dr. Mcclelland office Additional instructions from Dr Law - hospitalist - 1. please discuss with Dr Evon Luna about obtaining a colonoscopy later this year due to your family history of colon polyps as well as your diverticulitis episode you had earlier this summer. You will need to see Dr Luna in 6 weeks to have the stent removed from your bile duct. 2. please follow a low-fat diet (see handouts). For now please stay on your creon but be sure to talk with Torres KRAMER about potentially stopping them later this year. 3. the oxycodone-acetaminophen tablets are pain killer/narcotic medication. These can make you sleepy. Do NOT DRIVE while taking narcotic pain killers and do NOT drink alcohol while on them. They can also cause constipation. For constipation you can take a combination of idhc-zyb-mzqlymu miralax and/or senokot. 4. if you need to take the oxycodone do NOT take extra lbvl-axw-ppdeckb tylenol as the oxycodone already contains tylenol in it. 5. please have Dr Andersen repeat your liver function tests and lipase level (pancreas test) at time of hospital follow-up. Please see him within 1 week. 6. be sure to follow-up with Dr Appiah for the blood in the urine issue as well as high PSA level. You are scheduled to see him on June 15, 2022. 7. take ciprofloxacin antibiotic - 1 twice daily x 7 days, first dose TONIGHT; this is for your bile duct infection (cholangitis). 8. ok to take a probiotic supplement daily for the next week while you are on antibiotics. Any ooiw-bqk-qigrzku probiotic is acceptable. Return to [facility] if - * you have fever greater than 101 degrees * you have worsening abdominal pain * you have recurrent jaundice (yellowing of the eyes and skin) * you are not passing gas from the rectum and/or not having bowel movements * you cannot keep your food/beverages down * any other concerns It was our pleasure to care for you at [facility]! Dr Law Pending Studies at Discharge: Yes Studies:: surgical pathology Stand-Alone Forms: My [facility], Smoking Cessation Medications and DC Order Prescriptions: New ciprofloxacin HCl 500 mg tablet 500 mg PO BID Qty: 14 0RF oxycodone-acetaminophen [Percocet] 5-325 mg tablet 1 - 2 tab PO Q4H PRN (Reason: pain, initial therapy, max 6 daily) Qty: 12 0RF ondansetron 4 mg tablet,disintegrating 4 mg PO Q6H PRN (Reason: nausea and vomiting) Qty: 7 0RF Continued mirtazapine 15 mg tablet 7.5 mg PO HS Rx Instructions: 1/2 tablet dose bupropion HCl 100 mg tablet 100 mg PO TID omeprazole 20 mg capsule,delayed release(DR/EC) 20 mg PO BID cholecalciferol (vitamin D3) 50 mcg (2,000 unit) capsule 50 mcg PO DAILY duloxetine [Cymbalta] 20 mg capsule,delayed release(DR/EC) 20 mg PO DAILY Creon 24,000-76,000 -120,000 unit capsule,delayed release(DR/EC) 2 - 3 cap PO UD MDD 8-10 caps daily Rx Instructions: take 2-3 capsules with meals and 1-2 capsules with snack Discharge Orders: Discharge Order (Routine); Ordered 05/02/22 Ordered By: Sumanth Brasher/Other Patient Handouts: Low-Fat Cooking Tips, ERCP, Cholecystectomy Dc Admission Data Admit Date/Time: 04/28/22 17:04 Attending Provider: Sumanth Law Admit Provider: Sumanth Law Primary Care Provider: Cory Andersen Other Providers: Yuan Salazar ; Sumanth Law ; Jason Mcclelland Other Interventions: Discharge Summary Assessment (RN) Last Done: 05/02/22 12:31 Coding Level of Care Code D/C DAY MANAGEMENT >30 MINS Diagnoses Acute cholangitis due to calculus of bile duct with obstruction K80.33 Choledocholithiasis K80.50 Acute gallstone pancreatitis K85.10 Cholecystitis K81.9 Chronic pancreatitis K86.1 GERD (gastroesophageal reflux disease) K21.9 Anxiety state F41.1 Vitamin D deficiency E55.9 Hematuria R31.9
== END 2022-05-02 20:33 | disposition home or self-care (01) | DRG 417 ==
LOC: ED 12:42 → 3N 17:04 → 3E 05-01 12:35